=== PATIENT | male | born 1965 | race Caucasian/White ===

== ENCOUNTER 2016-12-05 07:22 | Inpatient (IN) | payer BC, OTHER ==
[~2016-12-05] VITALS: Ht 182.9 cm; Wt 63.5 kg
--- NOTE | 2016-12-05 12:30 | NUR ---
Intake Assessment; Patient is a 51 year old male, AOX4, presented to [facility] to detoxify from Heroin and Crystal Meth. Patient was picked up from [facility] and arrived at intake office at approximately 1200. He is the primary source of information. Patient's admitting vital signs are as follows; BP 99/55, HR 75, Temperature 98.4, Respirations of 18 and Spo2 of 95%, weight of 140lbs, denies pain at this time. Patient denies allergies and denies seizure history. Educated patient regarding unit protocols and policies, verbalized understanding. Will continue with further assessment when patient is up on the unit.
[2016-12-05] MEDS ORDERED: BUPRENORPHINE HCL 2 MG TAB.SUBL SL PRN (13:00)
[2016-12-05] MEDS ORDERED: MAGNESIUM HYDROXIDE 30 ML LIQUID UDC PO PRN (13:00)
[2016-12-05] MEDS ORDERED: DICYCLOMINE HCL 20 MG TABLET PO PRN (13:00)
[2016-12-05] MEDS ORDERED: ACETAMINOPHEN 325 MG TABLET PO PRN (13:00)
[2016-12-05] MEDS ORDERED: MIRALAX 17 GM POWD.PACK PO PRN (13:00)
[2016-12-05] MEDS ORDERED: IBUPROFEN 600 MG TABLET PO PRN (13:00)
[2016-12-05] MEDS ORDERED: CLONIDINE HCL 0.1 MG TABLET PO PRN (13:00)
--- NOTE | 2016-12-05 13:00 | NUR ---
Admission note; Patient is a 51 year old male, AOX4, presented to [facility] to detoxify from Heroin and Crystal Meth. Patient was picked up from [facility] and arrived at intake office at approximately 1200. He is the primary source of information. Patient's admitting vital signs are as follows; BP 99/55, HR 75, Temperature 98.4, Respirations of 18 and Spo2 of 95%, weight of 140lbs, denies pain at this time. Patient denies allergies and denies seizure history. Educated patient regarding unit protocols and policies, verbalized understanding. Patient is admitted under care of Dr. Barron to room 324. Urine provided by patient for urine drug screen. Patient appears agitated with flushed face. Patient is cooperative during nursing assessment. Discussed substance use history. Patient first started using Heroin when he was 17 years old, at this rate patient has been using Heroin IV for the last 3 weeks, approximately 2 grams/daily, last used 12/05/16 at 0945 and used 20$ worth of heroin. Patient also reported using Crystal Meth, he started using Meth IV 8 months ago, at this rate he has been using for 3 weeks approximately 1-1.5 grams/daily, last sued today 15$ worth of Meth. Discussed Medical and psych history. Patient reported history of depression, appendectomy, Hepatitis C and received treatment 5 years ago, UTI and tooth infection. All home medication reconciled and reported to MD. Patient's primary care physician is Dr. Mcdaniel. Patient's current COWS score is 4. Dr. Barron notified. Skin check done, old dry, intact scabs noted on patient's bilateral arms d/t skin picking. Patient oriented to unit by [employer]. Safety measures in place. Will continue to monitor patient.
[2016-12-05 13:24] LABS: *AMPHETAMINE, URINE POSITIVE (NEGATIVE); *BARBITURATE, URINE NEGATIVE (NEGATIVE); *CANNABINOID, URINE NEGATIVE (NEGATIVE); *COCCAINE, URINE POSITIVE (NEGATIVE); *OPIATE, URINE POSITIVE (NEGATIVE); *PHENCYCLIDINE SCREEN,URINE NEGATIVE (NEGATIVE)
[2016-12-05] MEDS ORDERED: NICO1PAT44 TP (13:32)
[2016-12-05] MEDS ORDERED: S-AD400T3 PO (13:32)
[2016-12-05] MEDS ORDERED: AMOX500C2 PO (13:32)
[2016-12-05] MEDS ORDERED: TAMS0.4C34 PO (13:32)
[2016-12-05] MEDS ORDERED: NICOTINE POLACRILEX 4 MG GUM-PK OF TEN BC PRN (15:00)
[2016-12-05] MEDS ORDERED: LORAZEPAM 1 MG TABLET PO ONE (15:00)
--- NOTE | 2016-12-05 15:00 | NUR ---
UDS result; Urine drug screen result came back positive for Opiates, amphetamine and Cocaine. Patient reported intermittent use of Cocaine with minimal unspecified amount but denies dependence to cocaine. Patient last used Cocaine yesterday.
[2016-12-05 15:08] LABS: BASOPHILS % (AUTO) 0.8 % (0.0-2.0); EOSINOPHILS # (AUTO) 0.3 K/uL (0.0-0.7); EOSINOPHILS % (AUTO) 5.2 % (0.0-7.0); HEMATOCRIT 43.3 % (40-50); HEMOGLOBIN 14.2 G/DL (14.0-18.0); LYMPHOCYTES # (AUTO) 1.5 K/UL (0.8-4.8); LYMPHOCYTES % (AUTO) 25.5 % (20.5-51.5); MEAN CORPUSCULAR HEMOGLOBIN 29.7 UUG (27.0-31.0); MEAN CORPUSCULAR HGB CONC 33 g/dL (32.0-37.0); MEAN CORPUSCULAR VOLUME 90.8 FL (82.0-92.0); MONOCYTES # (AUTO) 0.6 K/UL (0.1-1.30); MONOCYTES % (AUTO) 10.8 % (0.0-11.0); NEUTROPHILS # (AUTO) 3.4 K/UL (1.8-8.9); NEUTROPHILS % (AUTO) 57.7 % (38.5-71.5); PLATELET COUNT (AUTO) 374 K/UL (150-450); RED BLOOD CELL COUNT(AUTO) 4.77 MIL/UL (4.7-6.1); WHITE BLOOD COUNT (AUTO) 5.8 K/UL (4.0-11.2)
[2016-12-05 15:11] LABS: ETHANOL < 3 MG/DL (0-0)
[2016-12-05 15:17] LABS: ALANINE AMINOTRANSFERASE 18 U/L (16-63); ALKALINE PHOSPHATASE 68 U/L (50-136); ASPARTATE AMINOTRANSFERASE 22 U/L (15-37); BILIRUBIN,TOTAL 0.4 mg/dL (0.2-1.0); CARBON DIOXIDE 31 mmol/L (21-32); CHLORIDE 99 mmol/L (98-107); CREATININE 1.2 mg/dL (0.6-1.3); GLUCOSE 94 mg/dL (74-106); MAGNESIUM 2.2 mg/dL (1.8-2.4); POTASSIUM 3.8 mmol/L (3.5-5.1); TOTAL PROTEIN, SERUM 6.9 g/dL (6.4-8.2); UREA NITROGEN, BLOOD 8 mg/dL (7-18)
[2016-12-05 16:00] VITALS: BP 103/62
[2016-12-05] MEDS: DOCUSATE SODIUM 250 MG CAPSULE PO SCH (16:06)
--- NOTE | 2016-12-05 16:06 | NUR ---
New MD order and MD communication; MD ordered Ativan 2mg PO once and Colace 250mg PO once for constipation. Ativan 2mg PO one time order clarified with MD. Per MD, Ativan was ordered for anxiety and agitation. Order repeated back and was verified by MD. Orders carried out and given as ordered. Will closely monitor patient.
[2016-12-05] MEDS ORDERED: LORAZEPAM 1 MG TABLET ONE (16:14)
[2016-12-05] MEDS ORDERED: DOCUSATE SODIUM 250 MG CAPSULE PO ONE (16:14)
--- NOTE | 2016-12-05 17:06 | NUR ---
Re-assessment; Patient is calm and comfortable at this time. Ativan one time order is effective.
[2016-12-05] MEDS: FLUOXETINE HCL 20 MG CAPSULE PO SCH (17:21)
--- NOTE | 2016-12-05 18:06 | NUR ---
End of shift note; Patient is AOX4. Patient to start Subutex taper on 12/06/16. Patient's last COWS score is 4 at 1600. Patient remained compliant with treatment plan. Patient is on fall precaution. Met all needs.
--- NOTE | 2016-12-05 19:15 | NUR ---
Start of Shift Note: Patient is a 51 y/o admitted today 12/05/16 for Heroin and Meth dependence. Patient reported using Heroin IV 2 grams daily and Meth Iv 1-1.5 gram daily for 3 weeks. Patient also reported using cocaine on an intermittent non-daily basis. Patient is on a regular diet with no known food and drug allergies. Full Code status. Patient will be started on a 4-day Subutex taper tomorrow. Skin noted to be intact. Last COWS is 4. Pt was given a one time dose of Ativan 1mg as ordered. Patient is alert & oriented x4. No shortness of breath noted. Respiration even & unlabored. Abdomen soft & non-distended. Slight nausea noted. Patient complains of 8/10 generalized body aches, stuffy nose, & anxiety. Patient noted with slight bilateral hand tremors. Pateint denies SI/HI. Safety precautions are in place. Bed locked in lowest position. Both side rails up. Call light within pt's reach. Will continue to monitor patient.
[2016-12-05 20:00] VITALS: BP 117/76
[2016-12-05] MEDS: METHOCARBAMOL 750 MG TABLET PO PRN (20:41)
[2016-12-05] MEDS: HYDROXYZINE PAMOATE 25 MG CAPSULE PO PRN (20:41)
[2016-12-05] MEDS: ONDANSETRON ODT 4 MG TAB.RAPDIS SL PRN (20:41)
--- NOTE | 2016-12-05 20:41 | NUR ---
PRN Robaxin/Vistaril/Zofran Patient complains of 8/10 generalized body aches, anxiety & nausea. No episode of vomiting noted. Patient appears restless and anxious with facial grimacing noted. PRN Robaxin, Vistaril & Zofran administered as ordered. Will monitor for effectiveness of medication.
--- NOTE | 2016-12-05 21:41 | NUR ---
PRN Reassessment Patient verbalized improved nausea and decreased in anxiety. Patient reported 4/10 body aches at this time. Patient lying in bed and appears comfortable. No s/s of distress noted. Will continue to monitor patient.
[2016-12-06] VITALS: BP 102/64
[2016-12-06] MEDS: diphenhydrAMINE 50 MG CAPSULE PO PRN (01:01)
[2016-12-06] MEDS: MAG HYDROX/AL HYDROX/SIMETH 30 ML LIQUID UDC PO PRN (01:04)
--- NOTE | 2016-12-06 01:04 | NUR ---
PRN Benadryl & Motrin Patient complains of 8/10 generalized body aches and requesting for medication to help her sleep. PRn Benadryl and Motrin administered as ordered. Will reassess in 1 hour.
--- NOTE | 2016-12-06 02:04 | NUR ---
PRN Reassessment Patient still awake at this time. Patient reported slight relief from body aches. 5/10 generalized pain noted at this time. Will continue to monitor patient.
[2016-12-06 04:00] VITALS: BP 112/76
[2016-12-06] MEDS: HYDROXYZINE PAMOATE 25 MG CAPSULE PO PRN ×2 (04:41→12:26)
[2016-12-06] MEDS: METHOCARBAMOL 750 MG TABLET PO PRN ×2 (04:41→12:26)
--- NOTE | 2016-12-06 04:41 | NUR ---
PRN Robaxin & Vistaril Patient complains of 8/10 generalized body aches and anxiety. PRN Robaxin and Vistaril administered as ordered. Will continue to monitor.
[2016-12-06] MEDS: ONDANSETRON ODT 4 MG TAB.RAPDIS SL PRN (05:39)
--- NOTE | 2016-12-06 05:41 | NUR ---
PRN Reassessment Pt verbalized slight relief from body aches and decreased in anxiety. Will continue to monitor patient.
--- NOTE | 2016-12-06 07:15 | NUR ---
End of Shift Note: Patient is a 51 y/o admitted today 12/05/16 for Heroin and Meth dependence. Pt will be started on a 5-day Subutex taper today @ 0900. Patient is on a regular diet with no known food and drug allergies. Full Code status. Pt was given PRN Benadryl, Motrin, Robaxin x2, Vistaril x2, & Zofran 2x during my shift. Last COWS is 9. Pt had some trouble sleeping. Pt slept intermittently and only slept for a total of 4 hours. Pt was able to consume 1082 ml of fluids. Voided 2x with no bowel movement. All needs attended & met. Safety measures in place. Will endorse pt to day shift nurse.
--- NOTE | 2016-12-06 07:36 | NUR ---
START OF SHIFT NOTE Received patient roaming around unit. Patient reports feeling "crappy" and withdrawing from heroin and meth significantly. He is to start a 4 day Subutex taper today. 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 He was able to sleep 4 hours but he reports sleeping on and off. Last COWS 9 per night nurse. He reports hallucinations earlier this morning. Patient denies S/I or H/I. Will initiate taper to monitor s/s of w/d. Encouraged patient to notify RN if hallucinations worsen or if s/s of w/d become more severe. Will provide safe and supportive environment. Will monitor closely.
[2016-12-06 08:00] VITALS: BP 126/65
[2016-12-06] MEDS: FLUOXETINE HCL 20 MG CAPSULE PO SCH (08:17)
[2016-12-06] MEDS: TAMSULOSIN PO SCH (08:17)
[2016-12-06] MEDS: DOCUSATE SODIUM 250 MG CAPSULE PO SCH (08:17)
[2016-12-06] MEDS: MULTIVITAMINS,THERAPEUTIC TABLET PO SCH (08:17)
[2016-12-06] MEDS: NICOTINE 14 MG/24HR PATCH TD SCH (08:19)
[2016-12-06] MEDS ORDERED: TUBERCULIN,PURIF.PROT.DERIV. 5 TU/0.1 ML TEST ID ONE (09:00)
[2016-12-06] MEDS ORDERED: BUPRENORPHINE HCL 2 MG TAB.SUBL SL SCH (09:00)
[2016-12-06] MEDS ORDERED: PATIENT MAY USE OWN MED- MD OK TOP SCH (09:00)
[2016-12-06 12:00] VITALS: BP 121/62
[2016-12-06] MEDS: ONDANSETRON 4 MG/2 ML VIAL IM PRN ×2 (12:21→19:51)
--- NOTE | 2016-12-06 12:22 | NUR ---
PRN MEDICATION ZOFRAN IM GIVEN FOR 4 EMESIS EPISODES. WILL REASSESS Addendum: 12/06/16 at 1231 by NICK SAEED RN PRN BENTYL, ROBAXIN, AND VISTARIL GIVEN. PATIENT PRESENTS SHAKING AND STATES HE DOESN'T FEEL GOOD AND IS IN PAIN. PATIENT CURRENTLY VOMITING AND APPEARS ANXIOUS AND SICK. WILL MONITOR
--- NOTE | 2016-12-06 13:10 | NUR ---
PRN REASSESSMENT Patient sleeping in bed with rr even and unlabored. Patient frequently shifting in sleep. Side rails up & padded x2. Call justin within reach. Bed locked and in lowest position.Will monitor frequently.
[2016-12-06] MEDS: BUPRENORPHINE HCL 2 MG TAB.SUBL SL SCH ×3 (13:56→20:48)
[2016-12-06] MEDS: CLONIDINE HCL 0.1 MG TABLET PO SCH ×2 (14:00→20:48)
[2016-12-06] MEDS: GABAPENTIN 300 MG CAPSULE PO SCH ×2 (14:00→20:24)
[2016-12-06 14:08] LABS: HEPATITIS B SURFACE AG Negative (Negative)
[2016-12-06 16:00] VITALS: BP 104/74
--- NOTE | 2016-12-06 18:29 | NUR ---
END OF SHIFT NOTE Patient started on 4 day Subutex taper and tolerating well. PRN Zofran, Bentyl, Robaxin, and Vistaril given during shift and pt states they were effective. He was intermittently sleeping during shift. He appeared restless and anxious during shift. Vital signs remained stable. No group attendance. Patient reports feeling "out of it." Last COWS 12. TB test administered during shift to [facility]. Patient currently sleeping in bed with rails up x2, bed locked and in lowest position, call justin within reach. Will pass shift report to oncoming nurse.
--- NOTE | 2016-12-06 19:15 | NUR ---
Start of Shift Note: Patient is a 51 y/o admitted today 12/05/16 for Heroin and Meth dependence. Patient reported using Heroin IV 2 grams daily and Meth Iv 1-1.5 gram daily for 3 weeks. Patient also reported using cocaine on an intermittent non-daily basis. Patient is on a regular diet with no known food and drug allergies. Full Code status. Patient started on a 4-day Subutex taper and tolerating well. Skin noted to be intact. Last COWS is 12. Pt was given PRN Zofran, Bentyl, Robaxin & Vistaril during day shift. Patient is alert & oriented to name, place and situation. No shortness of breath noted. Respiration even & unlabored. Patient is ambulatory with a steady gait. Abdomen soft & non-distended. Patient complaining of stomach cramps and nausea with 1 episode of vomiting. Patient denies any headache or body aches. Pt appears really restless & frequent moving or shifting in bed. Bilateral hand tremors noted. Patient presented with sweating, chills, stuffy nose & anxiety. Pateint denies SI/HI. Safety precautions are in place. Bed locked in lowest position. Both side rails up. Call light within pt's reach. Will continue to monitor patient.
--- NOTE | 2016-12-06 19:51 | NUR ---
PRN Zofran IM Patient noted to be nauseous with 1 episode of vomiting noted. Pt vomited moderate amount of stomach content. PRN Zofran IM administered on left buttocks. Will reassess for effectiveness of medication.
[2016-12-06 19:58] VITALS: BP 108/72
--- NOTE | 2016-12-06 20:21 | NUR ---
PRN Reassessment Patient verbalized improved nausea. No episode of vomiting noted after medication administration. Will continue to monitor patient.
[2016-12-06] MEDS: DICYCLOMINE HCL 20 MG TABLET PO SCH (20:24)
[2016-12-06] MEDS: BACLOFEN 10 MG TABLET PO SCH (20:24)
--- NOTE | 2016-12-06 20:30 | NUR ---
RN Note Patient noted to be desaturating to 88-90% while on room air. No shortness of breath noted. Respiration even & unlabored. No wheezing noted upon auscultation. Dr. Barron made aware with orders noted and carried out. Pt placed on O2 @ 2Lpm via nasal cannula to maintain O2sat above 92%. CXR to be done in AM. Will continue to monitor patient.
[2016-12-06] MEDS ORDERED: LORAZEPAM 1 MG TABLET PO ONE (21:00)
[2016-12-07] VITALS: BP 114/79
[2016-12-07 04:00] VITALS: BP 103/67
--- NOTE | 2016-12-07 07:29 | NUR ---
End of Shift Note: Patient is a 51 y/o admitted today 12/05/16 for Heroin and Meth dependence. Pt continues on a 5-day Subutex taper and tolerating well. Patient is on a regular diet with no known food and drug allergies. Full Code status. Pt was given PRN Zofran IM for nausea/vomiting and was effective. Last COWS is 8. Pt is on O2 @ 2lpm to maintain O2Sat >92%. CXR scheduled today per MD order. Patient is stable and vitals WNL at this time. Pt still asleep at this time with no s/s of distress noted. Pt was able to sleep for a total of 9 hours. Consumed 850 ml of fluids. Voided 1x with 1x bowel movement. All needs attended met. Safety measures in place. Will endorse pt to day shift nurse.
--- NOTE | 2016-12-07 07:30 | NUR ---
START OF SHIFT Rcvd endorsement from ongoing nurse, Client is a 51 y/o male admitted for withdrawal from heroin, he is on 4 day Subutex taper (2nd day) with no ASE, last COWS 8 @ 2000. PRN Zofran IM for emesis, client slept 9 hrs. Client is in bed, a/o x4. he presents with depressed mood, flat affect, Client noted with enlarged pupil, body aches, sweats. Abdomen soft, nontender, quadrant x 4 active. Encourage client to increase fluid intake to facilitate detox. Encourage to attend group therapy for skills to maintain sobriety. Denied history of withdrawal induced seizures. Client is on universal precautions. NKA, full code, regular diet. Call light within reach. Side rails x 2 up. Will continue to monitor.
[2016-12-07] MEDS: GABAPENTIN 300 MG CAPSULE PO SCH ×3 (08:32→20:08)
[2016-12-07] MEDS: MULTIVITAMINS,THERAPEUTIC TABLET PO SCH (08:32)
[2016-12-07] MEDS: FLUOXETINE HCL 20 MG CAPSULE PO SCH (08:32)
[2016-12-07] MEDS: BACLOFEN 10 MG TABLET PO SCH ×3 (08:32→20:09)
[2016-12-07] MEDS: DICYCLOMINE HCL 20 MG TABLET PO SCH ×3 (08:33→20:09)
[2016-12-07] MEDS: DOCUSATE SODIUM 250 MG CAPSULE PO SCH (08:33)
[2016-12-07 08:50] VITALS: BP 94/61
[2016-12-07] MEDS: NICOTINE 14 MG/24HR PATCH TD SCH (09:00)
[2016-12-07] MEDS ORDERED: BUPRENORPHINE HCL 2 MG TAB.SUBL SL SCH ×2 (09:00→15:00)
--- NOTE | 2016-12-07 09:40 | NUR ---
MD Notification CX RAY for recent pna, current dyspnea and hypoxemia Impression: No radiographic evidence of acute cardiopulmonary disease.
[2016-12-07] MEDS: CLONIDINE HCL 0.1 MG TABLET PO SCH ×3 (09:46→20:09)
[2016-12-07] MEDS: TAMSULOSIN PO SCH (09:47)
[2016-12-07] MEDS: LOPERAMIDE HCL 2 MG CAPSULE PO PRN ×3 (10:07→21:41)
--- NOTE | 2016-12-07 10:07 | NUR ---
PRN IMODIUM 4MG Client reports several loose BM, Imodium 4mg PO administered. Encouraged client to increased fluid intake as tolerated. Call light within reach. Will continue to monitor.
--- NOTE | 2016-12-07 11:07 | NUR ---
Reassessment PRN IMODIUM 4MG Client reports no loose BM within the last hour, Imodium 4mg effective. Call light within reach. Will continue to monitor.
[2016-12-07 12:55] VITALS: BP 109/68
[2016-12-07 16:55] VITALS: BP 101/66
--- NOTE | 2016-12-07 17:14 | NUR ---
PRN Imodium 2mg Client reports several loose BM, Imodium 2mg PO administered. Encouraged client to increased fluid intake as tolerated. Call light within reach. Will continue to monitor.
[2016-12-07] MEDS: BUPRENORPHINE HCL 2 MG TAB.SUBL SL SCH ×2 (17:15→20:09)
--- NOTE | 2016-12-07 18:14 | NUR ---
Reassessment PRN Imodium 2mg Client reports no more episodes of loose stools within last hour, Imodium 2mg effective. Call light within reach. Will continue to monitor.
--- NOTE | 2016-12-07 18:33 | NUR ---
END OF SHIFT Will endorse client to incoming nurse, Client is in bed, a/o x 4, depressed mood, flat affect, enlarged pupil, chills, diarrhea, moist skin, irritability and fatigue are some of withdrawal symptoms experienced by the client and managed with Subutex taper (Day 2 of 4), tolerating well, last COWS 8 @ 1700. Client is fully ambulatory. PRN Imodium 4mg and 2mg for diarrhea, noted effective. Client was not with group therapy. Adequate PO fluid intake 1000mL, void x 10, stool x 5 Call light within reach. Safety measures rendered and all needs met.
--- NOTE | 2016-12-07 19:15 | NUR ---
Start of Shift Note: Patient is a 51 y/o admitted today 12/05/16 for Heroin and Meth dependence. Patient also reported using cocaine on an intermittent non-daily basis. Patient is on a regular diet with no known food and drug allergies. Full Code status. Patient continues on a 4-day Subutex taper and tolerating well. Skin noted to be intact. Last COWS is 8. Pt was given Immodium 2x for episodes of diarrhea. CXR done during day shift with unremarkable result. MD aware with NNO. Patient is alert & oriented to name, place and situation. No shortness of breath noted. Respiration even & unlabored. Patient is ambulatory with a steady gait. Abdomen soft & non-distended. Patient complaining of stomach cramps and nausea with 1 episode of vomiting. Patient denies any headache or body aches. Pt appears really restless and anxious. Bilateral hand tremors noted. Patient presented with sweating, chills, stuffy nose & anxiety. Pateint denies SI/HI. Safety precautions are in place. Bed locked in lowest position. Both side rails up. Call light within pt's reach. Will continue to monitor patient.
[2016-12-07] MEDS: ONDANSETRON 4 MG/2 ML VIAL IM PRN (19:48)
--- NOTE | 2016-12-07 19:48 | NUR ---
PRN Zofran IM Patient noted to be nauseous with 1 episode of vomiting noted. Pt vomited moderate amount of stomach content. PRN Zofran IM administered on right buttocks. Will reassess for effectiveness of medication.
[2016-12-07 20:00] VITALS: BP_SYST 100; BP_SYST 102; BP_DIAS 72
[2016-12-07] MEDS: MAG HYDROX/AL HYDROX/SIMETH 30 ML LIQUID UDC PO PRN (20:14)
--- NOTE | 2016-12-07 20:14 | NUR ---
PRN Maalox Patient complained of heartburn. PRN Maalox administered as ordered. WIll monitor for effectiveness of medication.
--- NOTE | 2016-12-07 20:48 | NUR ---
PRN Reassessment Patient verbalized improved nausea. No episode of vomiting noted after medication administration. Will continue to monitor patient.
[2016-12-07] MEDS: ONDANSETRON ODT 4 MG TAB.RAPDIS SL PRN (21:41)
[2016-12-07] MEDS: diphenhydrAMINE 50 MG CAPSULE PO PRN (21:41)
--- NOTE | 2016-12-07 21:41 | NUR ---
PRN Zofran SL/Immodium/Benadryl Pateitn complains of nausea. No episode of vomiting noted. Patient also reported episode of diarrhea and pt requested for medication for sleep. PRN Zofran, Immodium & Benadryl administered as ordered. Will monitor for effectiveness of medication.
--- NOTE | 2016-12-07 22:41 | NUR ---
PRN Reassessment Patient awake at this time and verbalized improved nausea. No episode of vomiting or diarrhea noted at this time. Will continue to monitor patient.
[2016-12-08] VITALS: BP 98/62
[2016-12-08 04:00] VITALS: BP 115/71
--- NOTE | 2016-12-08 06:52 | NUR ---
End of Shift Note: Patient is a 51 y/o admitted today 12/05/16 for Heroin and Meth dependence. Pt continues on a 5-day Subutex taper and tolerating well. Patient is on a regular diet with no known food and drug allergies. Full Code status. Pt was given PRN Zofran IM, Zofran SL, Immodium, Maalox & Benadryl during my shift. Last COWS is 7. Pt is on O2 @ 2lpm to maintain O2Sat >95%. Patient is stable and vitals WNL at this time. Pt still asleep at this time with no s/s of distress noted. Pt was able to sleep for a total of 6 hours. Consumed 1100 ml of fluids. Voided 2x with 2x loose bowel movement. Patient had 1 episode of vomiting during my shift. All needs attended met. Safety measures in place. Will endorse pt to day shift nurse.
--- NOTE | 2016-12-08 08:00 | NUR ---
START OF SHIFT Rcvd endorsement from ongoing nurse, 51 y/o admitted for withdrawal from heroin, he is on 4 day Subutex taper (3rd day) with no ASE, last COWS 7 @ 1999. PRN Benadryl for inability to sleep, Zofran IM, SL for emesis, Imodium for diarrhea, Maalox for heartburn, noted effective, client slept 6 hrs. Client is in bed, a/o x4. he presents with anxious mood, flat affect, he stated "I still have the runs." Client noted with enlarged pupil, diaphoretic, chills/colds, he reports stomach cramps, lost of appetite and fatigue. Abdomen soft, nontender, quadrant x 4 active. Encourage client to increase fluid intake to facilitate detox and prevent dehydration. Encourage to attend group therapy for skills to maintain sobriety. Denied history of withdrawal induced seizures. Client is on universal precautions. NKA, full code, regular diet. Call light within reach. Side rails x 2 up. Will continue to monitor.
[2016-12-08 08:17] VITALS: BP 121/71
[2016-12-08] MEDS: CLONIDINE HCL 0.1 MG TABLET PO SCH ×3 (08:34→20:23)
[2016-12-08] MEDS: LOPERAMIDE HCL 2 MG CAPSULE PO PRN (08:34)
[2016-12-08] MEDS: BACLOFEN 10 MG TABLET PO SCH ×3 (08:34→20:23)
--- NOTE | 2016-12-08 08:34 | NUR ---
PRN Imodium 2mg Client reports diarrhea, Imodium 2mg PO administered. Encouraged client to increased fluid intake as tolerated. Call light within reach. Will continue to monitor.
[2016-12-08] MEDS: BUPRENORPHINE HCL 2 MG TAB.SUBL SL SCH ×4 (08:35→20:23)
[2016-12-08] MEDS: DICYCLOMINE HCL 20 MG TABLET PO SCH ×3 (08:35→20:22)
[2016-12-08] MEDS: DOCUSATE SODIUM 250 MG CAPSULE PO SCH (08:36)
[2016-12-08] MEDS: GABAPENTIN 300 MG CAPSULE PO SCH ×3 (08:40→20:25)
[2016-12-08] MEDS: MULTIVITAMINS,THERAPEUTIC TABLET PO SCH (08:40)
[2016-12-08] MEDS: NICOTINE 14 MG/24HR PATCH TD SCH (08:40)
[2016-12-08] MEDS: FLUOXETINE HCL 20 MG CAPSULE PO SCH (08:40)
[2016-12-08] MEDS: TAMSULOSIN PO SCH (08:40)
[2016-12-08] MEDS ORDERED: BUPRENORPHINE HCL 2 MG TAB.SUBL SL SCH (09:00)
--- NOTE | 2016-12-08 09:00 | NUR ---
Zero induration noted on L forearm TB site
--- NOTE | 2016-12-08 09:34 | NUR ---
Reassessment PRN Imodium 2mg Client reports loose stool x 1 within last hour. Call light within reach. Will continue to monitor.
[2016-12-08 12:13] VITALS: BP 105/66
[2016-12-08 16:55] VITALS: BP 99/61
--- NOTE | 2016-12-08 18:43 | NUR ---
END OF SHIFT Will endorse client to incoming nurse, client is in group therapy, he continue to present with depressed mood, flat affect, chills, abdominal cramps, restless legs, decreased appetite, and fatigue. He is on 3rd of 5 day taper, tolerating well, last COWS 4 @ 1600. Client is tolerating well PO antibiotic for infection on L hand and topical antibiotic for superficial abrasions on face. Client is fully ambulatory. Client was compliant with 2/3 of group therapy. Adequate PO intake 2834mL, void x 4. Call light within reach. Safety measures rendered and all needs met.
[2016-12-08 20:00] VITALS: BP 107/57
--- NOTE | 2016-12-08 20:00 | NUR ---
1999 Patient received awake, and lying quietly in bed watching television. Patient responds to nurse's greeting and introduction with, " Hi, how are you ?" Patient is oriented to person, place, day, date, time and his personal situation. Patient's color is very palumbo-pink and his skin is clean, warm, dry and intact. Patient's lung sounds are clear bilaterally and active bowel sounds are noted X 4 abdominal Quads, per auscultation. Patient denies any pain or other discomfort and he offers no requests for anything. Patient states that he is eating his regular diet trays 'okay' and is taking lots of various fluids ad mirela with no gastric issues at this time, though he states that he has had some bouts of loose stools since his admission. Patient states that he has attended [employer] groups, but he did not do so today. Patient states further that, " I like being alone" It feels good" Vital signs are: 98.2-88-18 107/57 O2 Sat 95%, COWS 3. O2 per nasal cannula at bedside per prn use per MD order. Patient's respirations at this time are regular, dry and unlabored at 18. Patient was admitted on 12/05/16 for Heroin, Meth and Cocaine withdrawal and he is currently on a 4-Day Subutex medication taper, which he has apparently been tolerating well so far. Patient is friendly, cooperative, verbally appropriate and easily engages nurse in conversation, about himself, his life, his various treatment admissions, his family and other subjects personal to him. Patient allowed to ventilate his feelings, then positive encouragement and praise given to patient for his choice for treatment to deal with his addiction at this time. Bed is locked and in lowest position, bed rails are up X 2 and call light within patient's easy reach.
[2016-12-09] VITALS: BP 109/69
[2016-12-09] MEDS: ONDANSETRON 4 MG/2 ML VIAL IM PRN (02:14)
--- NOTE | 2016-12-09 02:14 | NUR ---
PRN MEDICATION: Prn Zofran 4 mg IM given in RUOQ, for c/o large amount explosive, clear emesis with brown particles. Emesis noted in and around toilet bowl and seat. Patient states that " this happened to me last night too, I don't know why?" It should be noted that patient has recently returned back to his room from a very long smoke break on [facility], where he smoked multiple cigarettes.
[2016-12-09] MEDS: diphenhydrAMINE 50 MG CAPSULE PO PRN ×2 (02:29→21:10)
[2016-12-09] MEDS: HYDROXYZINE PAMOATE 25 MG CAPSULE PO PRN ×2 (02:29→08:35)
--- NOTE | 2016-12-09 02:29 | NUR ---
PRN MEDICATIONS: Prn Benadryl 50 mg p.o. given per request for sleep medication and Prn Vistaril 25 mg p.o. given per c/o anxiety.
--- NOTE | 2016-12-09 02:44 | NUR ---
REASSESSMENT PRN ZOFRAN 4 mg IM: Patient states that both his nausea and vomiting has ceased.
--- NOTE | 2016-12-09 03:39 | NUR ---
REASSESSMENT PRN MEDICATION: Patient is sleeping comfortably with eyes closed and respirations quiet, even, unlabored at 12.
--- NOTE | 2016-12-09 04:00 | NUR ---
Patient refused to be awakened for V/S to be done at this time.
--- NOTE | 2016-12-09 06:30 | NUR ---
0630 Patient slept a total of 3 hours and he had total intake 1,000 ml p.o. Voids 3 and stools 2.
--- NOTE | 2016-12-09 08:00 | NUR ---
START OF SHIFT Rcvd endorsement from ongoing nurse, 51 y/o admitted for withdrawal from heroin, he is on last of 4 day Subutex taper with no ASE, last COWS 4 @ 0400. PRN Bunnyadkeilyl for inability to sleep, Preethi VALDEZ, emesis X 1, noted effective, client slept 6 hrs. Client is in bed, a/o x4. he stated "I just had a loose bm, I am really anxious and I feel like I just want to leave this place." primary nurse let the client express his feelings and offered comfort. Abdomen soft, nontender, quadrant x 4 active. Encourage client to increase fluid intake to facilitate detox. Encourage to attend group therapy for skills to maintain sobriety. Denied history of withdrawal induced seizures. Client is on universal precautions. NKA, full code, regular diet. Call light within reach. Side rails x 2 up. Will continue to monitor.
[2016-12-09] MEDS: DICYCLOMINE HCL 20 MG TABLET PO SCH ×3 (08:24→21:10)
[2016-12-09] MEDS: BACLOFEN 10 MG TABLET PO SCH ×3 (08:24→21:10)
[2016-12-09] MEDS: MULTIVITAMINS,THERAPEUTIC TABLET PO SCH (08:24)
[2016-12-09] MEDS: GABAPENTIN 300 MG CAPSULE PO SCH ×3 (08:24→21:10)
[2016-12-09] MEDS: BUPRENORPHINE HCL 2 MG TAB.SUBL SL SCH ×3 (08:25→21:09)
[2016-12-09] MEDS: CLONIDINE HCL 0.1 MG TABLET PO SCH ×3 (08:25→21:10)
[2016-12-09] MEDS: FLUOXETINE HCL 20 MG CAPSULE PO SCH (08:25)
[2016-12-09] MEDS: DOCUSATE SODIUM 250 MG CAPSULE PO SCH (08:26)
[2016-12-09] MEDS: NICOTINE 14 MG/24HR PATCH TD SCH (08:26)
[2016-12-09 08:28] VITALS: BP 102/71
[2016-12-09] MEDS: TAMSULOSIN PO SCH (08:35)
[2016-12-09] MEDS: LOPERAMIDE HCL 2 MG CAPSULE PO PRN ×2 (08:35→21:10)
--- NOTE | 2016-12-09 08:35 | NUR ---
PRN Vistaril, Imodium Client reports anxiety, mb pacing, loud voice, Vistaril 25mg PO administered. He reports one episode of loose stool Imodium 2mg PO administered. Call light within reach. Will continue to monitor.
[2016-12-09] MEDS ORDERED: BUPRENORPHINE HCL 2 MG TAB.SUBL SL SCH (09:00)
--- NOTE | 2016-12-09 09:35 | NUR ---
Reassessment PRN Vistaril, Imodium Client appears less anxious, he is in bed watching TV. He stated "I feel better, thank you and no more trips to the bathroom." Vistaril 25mg and Imodium 2mg effective. Call light within reach. Will continue to monitor.
[2016-12-09 12:55] VITALS: BP 101/65
[2016-12-09 16:55] VITALS: BP 102/63
[2016-12-09] MEDS: ONDANSETRON ODT 4 MG TAB.RAPDIS SL PRN (17:00)
--- NOTE | 2016-12-09 17:00 | NUR ---
PRN Zofran 4mg SL Client reports emesis x 1 and nausea, Zofran 4mg SL administered. Saltine crackers and ben dhiraj at bedside. call light within reach. will continue to monitor.
--- NOTE | 2016-12-09 18:00 | NUR ---
Reassessment PRN Zofran 4mg Client reports relief from emesis and nausea.
--- NOTE | 2016-12-09 18:47 | NUR ---
END OF SHIFT Will endorse client to incoming nurse, client is in room, PRN Vistaril for anxiety, Imodium for loose stool x 1, Zofran 4mg SL for emesis x 1, noted effective. Client continues to present with depressed mood, flat affect, abdominal cramps, restless legs, decreased appetite, and fatigue. He is on 4rd of 5 day taper, tolerating well, last COWS 6 @ 1700. Client is fully ambulatory. Client was not compliant with group therapy. Adequate PO intake 2342mL, void x 4, stool x 3. Call light within reach. Safety measures rendered and all needs met.
[2016-12-09 20:00] VITALS: BP 100/64
--- NOTE | 2016-12-09 20:00 | NUR ---
Start of Shift Note: Report received from day shift nurse. Pt is a 51 yo male admitted on 12/05/16 for medically-supervised withdrawal from opiates and stimulants. Pt reports using 2gm heroin and 1-1.5gm methamphetamine daily for three weeks; pt also reports intermittent use of cocaine. Pt is on a 4-day Subutex taper. Pt received with last COWS=6, and PRN's Vistaril, Imodium, and Zofran were given during day shift. Pt reports NKA, is a full code, and is on a regular diet. Pt reports PMHx: appendectomy, depression, Hep-C. Pt received in room, and reports severe diarrhea, nausea, dyspepsia, generalized pain, diaphoresis, and anxiety. Bed is in low position and locked, side rails up x2, call light within reach. Will continue to monitor.
--- NOTE | 2016-12-09 20:03 | NUR ---
Communication: Patient requests Tums chewable for dyspepsia. Dr Chisholm contacted and order received for Tums tab Q6H PRN. Order entered on behalf of Dr Chisholm as he is without computer access at this time. Addendum: 12/09/16 at 2007 by KOURTNEY MELCHOR RN Correction: MD Boyle
[2016-12-09] MEDS ORDERED: CALCIUM CARBONATE 500 MG TAB.CHEW ONE (20:48)
[2016-12-09] MEDS: CALCIUM CARBONATE 500 MG TAB.CHEW PO PRN (21:10)
--- NOTE | 2016-12-09 21:11 | NUR ---
PRN Imodium and PRN Tums: Patient complains of diarrhea; patient reports one episode this shift. Administered PRN Imodium as ordered. Patient complains of dyspepsia. Administered PRN Tums as ordered. Will continue to monitor. Addendum: 12/10/16 at 0332 by KOURTNEY MELCHOR RN Also administered PRN Benadryl for insomnia.
--- NOTE | 2016-12-09 22:15 | NUR ---
PRN Reassessment: Patient denies any more episodes of diarrhea. Patient denies dyspepsia. PRN Imodium and PRN Tums effective.
[2016-12-10] VITALS: BP 114/79
[2016-12-10] MEDS: ONDANSETRON 4 MG/2 ML VIAL IM PRN (00:40)
--- NOTE | 2016-12-10 03:27 | NUR ---
FARHANAN Zofran IM: Patient reports emesis x1 and states that he is still feeling very nauseous. Administered PRN Zofran IM as ordered. Will continue to monitor. Addendum: 12/10/16 at 0331 by KOURTNEY MELCHOR RN Wrong time entered. Administered at 00:40
[2016-12-10 04:00] VITALS: BP 111/67
--- NOTE | 2016-12-10 04:00 | NUR ---
COWS Deferred: COWS assessment is deferred for sleep. V/S stable. All safety precautions are in place. Will continue to monitor. Addendum: 12/10/16 at 0458 by KOURTNEY MELCHOR RN Amended: Links added.
--- NOTE | 2016-12-10 06:50 | NUR ---
End of Shift Note: Pt is a 51 yo male admitted to [facility] on 12/05/16 for medically-supervised withdrawal from opiates and stimulants. Pt reports a PMHx of appendectomy, depression, Hep-C. Pt reports NKA. Pt is a full code. Pt is on a regular diet. Pt reported using 2gm heroin and 1-1.5gm methamphetamine daily for three weeks; pt also reports intermittent use of cocaine. Pt is on a 4-day Subutex taper. Scheduled medication regime effectively managed s/s of withdrawal this shift, in addition to PRN Imodium for diarrhea, PRN Tums for dyspepsia, and PRN Zofran for emesis/nausea. Last COWS=7at 00:00. V/S stable throughout shift. Total fluid intake this shift: 1700 ml; output: urine x 4 and BM 1. PRN Benadryl was given for inability to sleep, which was effective and pt slept 7 hours this shift. Pt is currently in bed, all needs have been attended and met. Pt endorsed to day shift nurse.
[2016-12-10 08:39] VITALS: BP 110/68
[2016-12-10] MEDS: NICOTINE 14 MG/24HR PATCH TD SCH (09:00)
[2016-12-10] MEDS: DOCUSATE SODIUM 250 MG CAPSULE PO SCH (09:00)
[2016-12-10] MEDS: FLUOXETINE HCL 20 MG CAPSULE PO SCH (09:28)
[2016-12-10] MEDS: DICYCLOMINE HCL 20 MG TABLET PO SCH ×3 (09:28→20:51)
[2016-12-10] MEDS: MULTIVITAMINS,THERAPEUTIC TABLET PO SCH (09:28)
[2016-12-10] MEDS: CALCIUM CARBONATE 500 MG TAB.CHEW PO PRN ×2 (09:28→20:53)
[2016-12-10] MEDS: GABAPENTIN 300 MG CAPSULE PO SCH ×3 (09:28→20:52)
--- NOTE | 2016-12-10 09:28 | NUR ---
PRN Tums 500mg chew tab Client report upset stomach, he denies any D/N/V at this time. He stated "Maybe pain 3 or 4 out of 10." Call light within reach. Will continue to monitor.
[2016-12-10] MEDS: BUPRENORPHINE HCL 2 MG TAB.SUBL SL SCH ×2 (09:29→20:53)
[2016-12-10] MEDS: BACLOFEN 10 MG TABLET PO SCH ×3 (09:29→20:52)
[2016-12-10] MEDS: CLONIDINE HCL 0.1 MG TABLET PO SCH ×3 (09:29→20:55)
--- NOTE | 2016-12-10 09:30 | NUR ---
Client refused Nicotine 14mg patch and docusate, risk/benefits discuss, but he still refused the medications.
[2016-12-10] MEDS: TAMSULOSIN PO SCH (09:36)
--- NOTE | 2016-12-10 10:28 | NUR ---
Reassessment PRN Tums 500mg chew tab Client report relief from upset stomach, he stated "It feel better now, no problem." Client denies any N/V/D. Call light within reach.
[2016-12-10 12:55] VITALS: BP 113/76
[2016-12-10 16:55] VITALS: BP 110/75
--- NOTE | 2016-12-10 18:32 | NUR ---
END OF SHIFT Client continues on 4 of 5 day Subutex taper, tolerating well with no ASE. PRN Tums for upset stomach, effective. Last COWS 5 @ 1600. Client continues to present with depressed mood, flat affect, he reports stomach cramps, fatigue and restless legs. Client was not compliant with group therapy. . Adequate PO intake 2000L, void x 4. stool x 1. Call light within reach. Safety measures rendered and all needs met.
--- NOTE | 2016-12-10 19:15 | NUR ---
START OF SHIFT Received 51 year old male patient admitted on 12/05/16 for Heroin, Meth and Cocaine dependency. Pt is full code with NKA. He reports a PMHx of depression, appendectomy and Hep C. He reports using Heroin 2 grams daily for 3 weeks. Last dose was $20 worth on 12/05/16. Meth 1-1.5 gram daily for 3 weeks. Last dose was $15 worth on 12/05/16. And Cocaine intermittently. Last used 12/04/16. He is placed on a 5 day Subutex taper and tolerating well. Per endorsement, pt received PRN Tums and has order for 2L to keep O2 sat above 95%. Pt is alert and oriented x4, breathing is even and unlabored, safety measures in place. Will continue to monitor.
[2016-12-10 20:00] VITALS: BP 105/68
[2016-12-10] MEDS: QUETIAPINE FUMARATE 25 MG TABLET PO SCH (20:51)
--- NOTE | 2016-12-10 20:53 | NUR ---
PRN TUMS Pt complains of heartburn. PRN Tums administered as ordered. Breathing even and unlabored, safety measures in place. Will monitor effectiveness.
--- NOTE | 2016-12-10 21:53 | NUR ---
PRN TUMS REASSESSMENT PRN medication effective. Pt reports decrease in heartburn. Breathing even and unlabored, safety measures in place. Will monitor.
--- NOTE | 2016-12-11 | NUR ---
VITALS REFUSED, COWS DEFERRED 0000 vitals refused by pt. Risks/benefits explained x3, pt still refused. COWS deferred d/t pt lying in bed with eyes closed noted to be asleep. Breathing even and unlabored, respirations 16. Safety measures in place. Will monitor.
[2016-12-11] MEDS: ONDANSETRON 4 MG/2 ML VIAL IM PRN (02:13)
--- NOTE | 2016-12-11 02:15 | NUR ---
PRN ZOFRAN IM Pt complains of nausea and vomiting x2. PRN Zofran IM administered as ordered. Breathing even and unlabored, safety measures in place. Will monitor effectiveness.
--- NOTE | 2016-12-11 03:15 | NUR ---
PRN ZOFRAN IM REASSESSMENT PRN medication effective. Pt lying in bed with eyes closed noted to be asleep. No facial grimacing noted. Respirations 16, breathing even and unlabored. Safety measures in place. Will monitor.
--- NOTE | 2016-12-11 04:00 | NUR ---
VITALS/COWS 0400 BP refused. O2 sat 96%, RR: 16, HR: 98. COWS deferred d/t pt lying in bed with eyes closed noted to be asleep. Safety measures in place. Will monitor.
--- NOTE | 2016-12-11 07:14 | NUR ---
Start of shift note Pt was admitted for opiate dependence. Pt has a PMHx of depression and hep C. Pt reports NKA, pt is a full code and on a regular diet. Pt is on a subutex taper. Per report, pt had episodes of vomiting and diarrhea, but only requested IM zofran. At this time pt states "I feel a little nauseated, but I am ok right now". Will continue to monitor pt. All needs addressed at this time.
--- NOTE | 2016-12-11 07:21 | NUR ---
END OF SHIFT Pt is a 51 year old male patient admitted on 12/05/16 for Heroin, Meth and Cocaine dependency. Pt is full code with NKA. He reports a PMHx of depression, appendectomy and Hep C. He continues on a 5 day Subutex taper and tolerating well. At 2052 he received PRN Tums, at 214 he received PRN Zofran IM. He slept a total of 6 hrs, Intake: 1250 mL, Void: x2, BM: 4. COWS:5. Pt remains alert and oriented x4, breathing is even and unlabored, safety measures in place. Endorsed to oncoming shift.
[2016-12-11 08:00] VITALS: BP 104/60
[2016-12-11] MEDS: NICOTINE 14 MG/24HR PATCH TD SCH (09:00)
[2016-12-11] MEDS: CLONIDINE HCL 0.1 MG TABLET PO SCH ×2 (09:00→21:07)
[2016-12-11] MEDS ORDERED: BUPRENORPHINE HCL 2 MG TAB.SUBL SL SCH (09:00)
[2016-12-11] MEDS: DICYCLOMINE HCL 20 MG TABLET PO SCH ×3 (09:13→21:07)
[2016-12-11] MEDS: TAMSULOSIN PO SCH (09:13)
[2016-12-11] MEDS: FLUOXETINE HCL 20 MG CAPSULE PO SCH (09:13)
[2016-12-11] MEDS: BACLOFEN 10 MG TABLET PO SCH ×3 (09:13→21:07)
[2016-12-11] MEDS: GABAPENTIN 300 MG CAPSULE PO SCH ×3 (09:13→21:07)
[2016-12-11] MEDS: MULTIVITAMINS,THERAPEUTIC TABLET PO SCH (09:13)
--- NOTE | 2016-12-11 09:15 | NUR ---
Medication held Pt has a BP of 104/60, per order, pt does not meet criteria to administer medication. Medication held. Pt also states that he prefers to smoke at this time. Nicotine patch held. Will continue to monitor pt.
--- NOTE | 2016-12-11 09:20 | NUR ---
PRN administration pt c/o multiple episodes of diarrhea. administered PRN imodium per MD order. Pt placed on isolation precautions, pt educated on hand washing, stool sample collected.
[2016-12-11] MEDS: LOPERAMIDE HCL 2 MG CAPSULE PO PRN (09:29)
--- NOTE | 2016-12-11 10:20 | NUR ---
Reassessment Pt states that he has not had an episode of diarrhea. Will continue to monitor pt.
[2016-12-11 12:00] VITALS: BP 121/74
[2016-12-11] MEDS ORDERED: IBUP-1955 PO (13:29)
[2016-12-11] MEDS ORDERED: BACL10TA PO (13:29)
[2016-12-11] MEDS ORDERED: DIPH50CA37 PO (13:29)
[2016-12-11] MEDS ORDERED: HYDR-3895 PO (13:29)
[2016-12-11] MEDS ORDERED: QUET25TA PO (13:29)
[2016-12-11] MEDS ORDERED: GABA-534 PO (13:29)
[2016-12-11] MEDS ORDERED: DICY20TA28 PO (13:29)
[2016-12-11] MEDS ORDERED: FLUO-120 PO (13:29)
[2016-12-11] MEDS ORDERED: CLON0.1T14 PO (13:29)
[2016-12-11] MEDS ORDERED: DIPHENOXYLATE HCL/ATROP SULF TABLET PO ONE (13:30)
[2016-12-11 15:33] LABS: *AMPHETAMINE, URINE POSITIVE (NEGATIVE); *BARBITURATE, URINE NEGATIVE (NEGATIVE); *CANNABINOID, URINE NEGATIVE (NEGATIVE); *COCCAINE, URINE NEGATIVE (NEGATIVE); *OPIATE, URINE NEGATIVE (NEGATIVE); *PHENCYCLIDINE SCREEN,URINE NEGATIVE (NEGATIVE)
[2016-12-11 16:00] VITALS: BP 106/70
[2016-12-11] MEDS ORDERED: DIPHENOXYLATE HCL/ATROP SULF TABLET PO PRN (18:45)
--- NOTE | 2016-12-11 19:14 | NUR ---
End of shift note Pt has been admitted for opiate dependence. Pt has successfully completed a 5 day subutex taper without any ASE. Pt has been placed on isolation precautions to rule out c-diff d/t pt reporting having watery diarrhea for 5 days. Stool sample has been sent to lab. During the shift the pt had a PRN dose of Imodium and a one time dose of lomotil with effectiveness. Pt states that he hasn't had any further diarrhea at this time. Pt denies any nausea or other feelings of discomfort. Pt had a recent COWS of 3 at 1600. Pt drank 2500 ml of fluids during the shift, ate 100% of his breakfast, ate 100% of lunch, and 100 of dinner. Pt had 10 voids and 3 BMs during the shift. All needs addressed at this time. Will endorse SBAR to oncoming shift.
--- NOTE | 2016-12-11 19:15 | NUR ---
START OF SHIFT Received 51 year old male patient admitted on 12/05/16 for Heroin, Meth and Cocaine dependency. Pt is full code with NKA. He reports a PMHx of depression, appendectomy and Hep C. He reports using Heroin 2 grams daily for 3 weeks. Last dose was $20 worth on 12/05/16. Meth 1-1.5 gram daily for 3 weeks. Last dose was $15 worth on 12/05/16. And Cocaine intermittently. Last used 12/04/16. He is placed on a 5 day Subutex taper, pt completed his taper today and tolerating well. Per endorsement, pt is on contact ISO to rule out C-DIFF. Per endorsement pt received PRN Imodium. Pt's clonidine is also changed to every 12 hours. Pt is alert and oriented x4, breathing is even and unlabored, safety measures in place. Will continue to monitor.
[2016-12-11 20:00] VITALS: BP 109/74
[2016-12-11] MEDS: QUETIAPINE FUMARATE 25 MG TABLET PO SCH (21:07)
--- NOTE | 2016-12-12 | NUR ---
VITALS REFUSED/COWS DEFERRED 0000 vitals refused by pt. COWS deferred d/t pt lying in bed with eyes closed noted to be asleep. Breathing even and unlabored, respirations 16. Safety measures in place. Will continue to monitor.
[2016-12-12] MEDS: ONDANSETRON 4 MG/2 ML VIAL IM PRN (01:46)
--- NOTE | 2016-12-12 01:46 | NUR ---
PRN ZOFRAN/LOMOX Pt complains of nausea with episode of vomiting x1 and diarrhea x1. PRN Zofran IM and Lomox administered as ordered. Breathing even and unlabored, safety measures in place. Will monitor.
--- NOTE | 2016-12-12 02:46 | NUR ---
PRN ZOFRAN/LOMOX REASSESSMENT PRN medications effective. Pt lying comfortably in bed with eyes closed noted to be asleep. No facial grimacing noted. Respirations 16, breathing is even and unlabored. Safety measures in place. Will monitor.
--- NOTE | 2016-12-12 04:00 | NUR ---
VITALS/COWS 0400 vitals refused. COWS deferred d/t pt lying in bed with eyes closed noted to be asleep. Respirations 16, breathing is even and unlabored. Safety measures in place. Will monitor.
--- NOTE | 2016-12-12 07:23 | NUR ---
END OF SHIFT Pt is a 51 year old male patient admitted on 12/05/16 for Heroin, Meth and Cocaine dependency. Pt is full code with NKA. He reports a PMHx of depression, appendectomy and Hep C. Pt continues on contact ISO to rule out CDIFF. At 0146 he received PRN Zofran and Lomox d/t complains of vomiting and diarrhea. He slept a total of 7 hrs, Intake: 1850mL, Void: x2, BM:1. COWS:3. Pt is scheduled to be DC today to home. Pt remains alert and oriented x4, breathing is even and unlabored, safety measures in place. Endorsed to oncoming shift.
--- NOTE | 2016-12-12 07:52 | NUR ---
START OF SHIFT Received report from night nurse. 51 year old male patient admitted on 12/05/16 for heroin and methamphetamine dependence. Pt has completed 5 day Subutex taper and is medically cleared for discharge. Pt continues to have diarrhea, c diff isolations are in place, results of stool sample are still pending. Pt had 1 episode of diarrhea at night and one episode of nausea and emesis. PRN Zofran and Lomotil were administered and effective. Most recent COWS were 3. Pt slept for 7 hours. All needs met at this time, will continue to monitor.
[2016-12-12 08:12] VITALS: BP 110/63
[2016-12-12] MEDS: NICOTINE 14 MG/24HR PATCH TD SCH (09:00)
[2016-12-12] MEDS: TAMSULOSIN PO SCH (09:04)
[2016-12-12] MEDS: DICYCLOMINE HCL 20 MG TABLET PO SCH (09:04)
[2016-12-12] MEDS: FLUOXETINE HCL 20 MG CAPSULE PO SCH (09:04)
[2016-12-12] MEDS: BACLOFEN 10 MG TABLET PO SCH (09:04)
[2016-12-12 09:05] VITALS: BP 110/67
[2016-12-12] MEDS: CLONIDINE HCL 0.1 MG TABLET PO SCH (09:05)
[2016-12-12] MEDS: MULTIVITAMINS,THERAPEUTIC TABLET PO SCH (09:05)
[2016-12-12] MEDS: GABAPENTIN 300 MG CAPSULE PO SCH (09:05)
--- NOTE | 2016-12-12 09:18 | NUR ---
D/C NOTE Pt is A/O x4. V/S remain WNL. Pt denies SI/HI or hallucinations. Pt shows no s/s of acute withdrawal at this time, and is stable. has medically cleared pt for d/c . Education on Hepatitis C, smoking cessation and medication side effects provided. Pt verbalizes understanding. All pt belongings are in belonging bag, including prescriptions, including home medications. Refuses PNU vaccination. Pt is being accompanied by [employer] at this time to be transported to [facility], pt d/c location is home. All needs met.
== END 2016-12-12 09:18 | disposition home or self-care (01) | DRG 895 ==
LOC: SRC 12:30
PROVIDERS: ADMIT Internal Medicine; ATTEND Internal Medicine
PROC: HZ2ZZZZ Detoxification Services for Substance Abuse Treatment (ICD-10-PCS; principal; 2016-12-05)
PROC: HZ31ZZZ Individual Counseling for Substance Abuse Treatment, Behavioral (ICD-10-PCS; 2016-12-07)
DX: F11.23 Opioid dependence with withdrawal (principal); F33.1 Major depressive disorder, recurrent, moderate; Z91.89 Other specified personal risk factors, not elsewhere classified; Z81.1 Family history of alcohol abuse and dependence; Z81.8 Family history of other mental and behavioral disorders; F17.210 Nicotine dependence, cigarettes, uncomplicated; K59.03 Drug induced constipation; N40.0 Benign prostatic hyperplasia without lower urinary tract symptoms; Z56.0 Unemployment, unspecified; R09.02 Hypoxemia; F15.221 Other stimulant dependence with intoxication delirium; Z79.899 Other long term (current) drug therapy; B19.20 Unspecified viral hepatitis C without hepatic coma
CPT/HCPCS: 36415; 71010; 80307; 80324; 80353; 80361; 83735; 85025; 86580; 86592; 86705; 86803; 87340; 87806; A4663; G0480; J2405; Q0162; Q0163

== ENCOUNTER 2017-01-25 07:17 | Inpatient (IN) | payer BC, OTHER ==
[~2017-01-25] VITALS: Ht 180.3 cm; Wt 59.0 kg
[~2017-01-25 07:17] MED LIST: BACL10TA PO; CLON0.1T14 PO; DICY20TA28 PO; DIPH50CA37 PO; FLUO-120 PO; GABA-534 PO; HYDR-3895 PO; IBUP-1955 PO; NICO1PAT44 TP; QUET25TA PO; TAMS0.4C34 PO
--- NOTE | 2017-01-25 10:30 | NUR ---
PRE ADMISSION Pt 51 y/o male in intake for assessment. Pt stated [facility] and does not have a stable permanent residence at the moment. Pt admitted for heroin, cocaine, and methamphetamine dependence. Pt alert and oriented to name, place, and time. Perrla. Skin warm and dry to touch. Respirations even and unlabored. No hand tremors noted. Pt appears fidgety , tapping foot and not able to sit still. VS wnl. NKA. Pt denies any SZ history. Pt requested full code status. Pt cooperative with interview. No distress noted at this time. Explained unit rules to pt.
--- NOTE | 2017-01-25 11:00 | NUR ---
ADMISSION Pt 51 y/o male in intake for assessment. Pt stated came from [facility] and does not have a stable permanent residence at the moment. Pt admitted for heroin, cocaine, and methamphetamine dependence. Pt alert and oriented to name, place, and time. Perrla. Skin warm and dry to touch. Respirations even and unlabored. No hand tremors noted. Pt appears fidgety , tapping foot and not able to sit still. VS wnl. NKA. Pt denies any SZ history. Pt requested full code status. Pt cooperative with interview. Pt was seen by MD. Initial cows=3. Oriented pt to unit and room. No distress noted at this time. substance hx: - heroin IV 2gm daily [id number]. Last used 01/25/17 0500 1/2gm. total=30 years - cocaine IV 0.5gm daily x2 weeks. Last used 01/24/17 1.5gm. totals=30 years - methamphetamine IV 0.5gm daily x2 weeks. last used 01/25/17 0.5gm. total=30 years medical hx: BPH, HepC, right rotator cuff surgery, appendectomy treatment hx: Pt states only remembers being admitted for [facility] in October 2016. Addendum: 01/25/17 at 1811 by NATE ALEGRE RN additional info Pt states was on phenobarbital 4 weeks ago in [facility]
[2017-01-25] MEDS ORDERED: ACETAMINOPHEN 325 MG TABLET PO PRN (11:30)
[2017-01-25] MEDS ORDERED: DICYCLOMINE HCL 20 MG TABLET PO PRN (11:30)
[2017-01-25] MEDS ORDERED: IBUPROFEN 600 MG TABLET PO PRN (11:30)
[2017-01-25] MEDS ORDERED: ONDANSETRON 4 MG/2 ML VIAL IM PRN (11:30)
[2017-01-25] MEDS ORDERED: MIRALAX 17 GM POWD.PACK PO PRN (11:30)
[2017-01-25] MEDS ORDERED: ONDANSETRON ODT 4 MG TAB.RAPDIS SL PRN (11:30)
[2017-01-25] MEDS ORDERED: BUPRENORPHINE HCL 2 MG TAB.SUBL SL PRN (11:30)
[2017-01-25] MEDS ORDERED: NICOTINE POLACRILEX 4 MG GUM-PK OF TEN BC PRN (11:30)
[2017-01-25] MEDS ORDERED: diphenhydrAMINE 50 MG CAPSULE PO PRN (11:30)
[2017-01-25] MEDS ORDERED: MAG HYDROX/AL HYDROX/SIMETH 30 ML LIQUID UDC PO PRN (11:30)
[2017-01-25 11:53] LABS: BASOPHILS # (AUTO) 0.1 K/uL (0.0-8.0); BASOPHILS % (AUTO) 1.6 % (0.0-2.0); EOSINOPHILS # (AUTO) 0.4 K/uL (0.0-0.7); EOSINOPHILS % (AUTO) 7.5 % (0.0-7.0); HEMATOCRIT 43.5 % (40-50); LYMPHOCYTES # (AUTO) 1.4 K/UL (0.8-4.8); MEAN CORPUSCULAR HEMOGLOBIN 29.1 UUG (27.0-31.0); MEAN CORPUSCULAR HGB CONC 32 g/dL (32.0-37.0); MEAN CORPUSCULAR VOLUME 90.3 FL (82.0-92.0); MONOCYTES # (AUTO) 0.5 K/UL (0.1-1.30); MONOCYTES % (AUTO) 9.2 % (0.0-11.0); NEUTROPHILS % (AUTO) 55.7 % (38.5-71.5); PLATELET COUNT (AUTO) 274 K/UL (150-450); RED BLOOD CELL COUNT(AUTO) 4.82 MIL/UL (4.7-6.1); WHITE BLOOD COUNT (AUTO) 5.4 K/UL (4.0-11.2)
[2017-01-25 12:00] VITALS: BP 109/75
[2017-01-25] MEDS ORDERED: LORAZEPAM 1 MG TABLET PO ONE (12:00)
[2017-01-25 12:04] LABS: ALANINE AMINOTRANSFERASE 21 U/L (16-63); ALKALINE PHOSPHATASE 59 U/L (50-136); ASPARTATE AMINOTRANSFERASE 18 U/L (15-37); BILIRUBIN,TOTAL 0.3 mg/dL (0.2-1.0); CARBON DIOXIDE 34 mmol/L (21-32); CHLORIDE 100 mmol/L (98-107); GLUCOSE 125 mg/dL (74-106); TOTAL PROTEIN, SERUM 6.9 g/dL (6.4-8.2); UREA NITROGEN, BLOOD 15 mg/dL (7-18)
[2017-01-25 12:12] LABS: *AMPHETAMINE, URINE POSITIVE (NEGATIVE); *BARBITURATE, URINE POSITIVE (NEGATIVE); *CANNABINOID, URINE NEGATIVE (NEGATIVE); *COCCAINE, URINE POSITIVE (NEGATIVE); *OPIATE, URINE POSITIVE (NEGATIVE); *PHENCYCLIDINE SCREEN,URINE NEGATIVE (NEGATIVE)
[2017-01-25 12:13] LABS: ETHANOL < 3 MG/DL (0-0)
[2017-01-25] MEDS ORDERED: QUET100T PO (13:28)
[2017-01-25] MEDS ORDERED: FLUO20CA36 PO (13:28)
[2017-01-25] MEDS: FLUOXETINE HCL 20 MG CAPSULE PO SCH (14:59)
[2017-01-25 16:00] VITALS: BP 109/78
--- NOTE | 2017-01-25 18:09 | NUR ---
END OF SHIFT Pt 51 y/o male admitted for heroin, cocaine, and methamphetamine dependence. Pt alert and oriented to name , place, and time. Perrla. Skin warm and dry to touch. Respirations even and unlabored. No hand tremors noted at this time. Pt observed mostly in room throuhgout the day, mostly on bed with eyes closed resting, but easily arousable to name. Bed on lowest position with side rails x2 up for safety. Call light within reach. No distress noted at this time.
--- NOTE | 2017-01-25 19:00 | NUR ---
Start of Shift Patient Received. Patient is in bed sleeping but easily aroused to verbal stimuli. Breathing even and non labored. Patient is a 51 year old male admitted on 01/25/17 for Opiate Dependence under the care of Dr. Barron. Patient is set to start 01/26/17 0900. No known allergies, wishes to be full code, following a regular diet, placed on fall and seizure precautions, and skin noted intact. Past medical history noted as BPH, Hep C, Right Rotator Cuff injury. Per endorsement, admission COWS noted as 1. All needs attended to promptly. Will continue plan of care as ordered.
[2017-01-25 20:55] VITALS: BP 112/67
[2017-01-25] MEDS: HYDROXYZINE PAMOATE 25 MG CAPSULE PO PRN (21:02)
[2017-01-25] MEDS: TAMSULOSIN HCL 0.4 MG CAP.SR.24H PO SCH (21:02)
[2017-01-25] MEDS: QUETIAPINE FUMARATE 25 MG TABLET PO SCH (21:03)
[2017-01-25] MEDS: GABAPENTIN 300 MG CAPSULE PO SCH (21:03)
[2017-01-25] MEDS: METHOCARBAMOL 750 MG TABLET PO PRN (21:03)
--- NOTE | 2017-01-25 21:03 | NUR ---
PRN Medication Administration Patient verbalizing increased body aches and increased anxiety. PRN Vistaril and Robaxin administered as per orders. Will continue to monitor.
--- NOTE | 2017-01-25 22:00 | NUR ---
PRN Medication Reassessment Patient is able to verbalize PRN Vistaril and Robaxin were effective in minimizing anxiety and body aches. Will continue to monitor.
[2017-01-26] VITALS (7 sets, daily range): BP systolic 109–138; BP diastolic 68–90
[2017-01-26] MEDS: CLONIDINE HCL 0.1 MG TABLET PO PRN ×2 (01:13→09:55)
--- NOTE | 2017-01-26 01:13 | NUR ---
PRN Medication Administration Patient noted awake and verbalizing increased anxiety, agitation, and inability of falling asleep. PRN Clonidine and Benadryl administered as per order. Will continue to monitor.
--- NOTE | 2017-01-26 02:15 | NUR ---
PRN Medication Reassessment Patient noted in bed sleeping. Breathing even and non labored. No signs of pain or discomfort noted. Patient given PRN Clonidine and Benadryl for increased anxiety and inability of falling asleep. Patient noted to sleep with no interruptions noted. PRN medications noted to be effective.
[2017-01-26 06:08] LABS: HEPATITIS B SURFACE AG Negative (Negative)
--- NOTE | 2017-01-26 07:06 | NUR ---
End of Shift Patient is in bed sleeping but easily aroused to verbal stimuli. Breathing even and non labored. No signs of pain or discomfort noted. Patient is a 51 year old male admitted on 01/25/17 for Opiate Dependence under the care of Dr. Barron. Patient is set to start Subutex taper 01/26/17 0900. No known allergies, wishes to be full code, following a regular diet, placed on fall and seizure precautions, and skin noted intact. Past medical history noted as BPH, Hep C, Right Rotator Cuff injury. Patient given PRN Robaxin, Vistaril, Clonidine, Benadryl with all medications noted to be effective. Last CIWA noted to be 9. Patient noted to sleep a total of 5 hours. All needs attended to promptly. Will continue plan of care as ordered.
--- NOTE | 2017-01-26 07:30 | NUR ---
START OF SHIFT Pt 51 y/o male admitted for heroin, cocaine, and methamphetamine dependence. Pt received in room on bed with eyes closed resting, but easily arousable to name. Pt alert and oriented to name , place, and time. Perrla. Skin warm and slighlty moist to touch. Respirations even and unlabored. Bilateral hand tremors noted. It was reported that pt slept for 5 hours last night. Bed on lowest position with side rails x2 up for safety. Call light within reach. No distress noted at this time.
[2017-01-26] MEDS: MULTIVITAMINS,THERAPEUTIC TABLET PO SCH (09:00)
[2017-01-26] MEDS: GABAPENTIN 300 MG CAPSULE PO SCH (09:00)
[2017-01-26] MEDS: NICOTINE 14 MG/24HR PATCH TD SCH (09:00)
[2017-01-26] MEDS: FLUOXETINE HCL 20 MG CAPSULE PO SCH (09:00)
[2017-01-26] MEDS: BUPRENORPHINE HCL 2 MG TAB.SUBL SL SCH ×3 (09:00→20:31)
[2017-01-26] MEDS ORDERED: TUBERCULIN,PURIF.PROT.DERIV. 5 TU/0.1 ML TEST ID ONE (09:00)
[2017-01-26] MEDS: HYDROXYZINE PAMOATE 25 MG CAPSULE PO PRN (09:55)
[2017-01-26] MEDS: METHOCARBAMOL 750 MG TABLET PO PRN (09:55)
--- NOTE | 2017-01-26 09:55 | NUR ---
PRN Pt states has body aches 6/10. Robaxin po prn per MD order given and tolerated well.
--- NOTE | 2017-01-26 09:55 | NUR ---
PRN Pt states feels anxious. Vistaril po prn per MD order given and tolerated well.
--- NOTE | 2017-01-26 09:55 | NUR ---
PRN Pt states feels very anxious. Catapres po prn per MD order given and tolerated well.
--- NOTE | 2017-01-26 10:55 | NUR ---
PRN IESHAAL Pt states pain 2/10 and observed laying on bed watching television.
--- NOTE | 2017-01-26 10:55 | NUR ---
PRN EVAL Pt observed on bed watching television.
[2017-01-26] MEDS ORDERED: LORAZEPAM 1 MG TABLET PO PRN (11:30)
--- NOTE | 2017-01-26 13:40 | NUR ---
PRN Pt stated feels anxious. Pt observed tapping feet and not able to sit still. Ativan po prn per MD order given and tolerated well.
[2017-01-26] MEDS: BACLOFEN 10 MG TABLET PO SCH ×2 (14:33→20:31)
[2017-01-26] MEDS: GABAPENTIN 400 MG CAPSULE PO SCH ×2 (14:33→20:31)
--- NOTE | 2017-01-26 14:40 | NUR ---
PRN FARSHAD Pt observed on bed in room watching television.
--- NOTE | 2017-01-26 18:27 | NUR ---
END OF SHIFT Pt 51 y/o male admitted for heroin, cocaine, and methamphetamine dependence. Pt alert and oriented to name , place, and time. Perrla. Skin warm and dry to touch. Respirations even and unlabored. No hand tremors noted at this time. Pt observed mostly in room throughout the day. Pt was seen by MD today. Pt medication compliant and tolerated well. No ASE noted. Bed on lowest position with side rails x2 up for safety. Call light within reach. No distress noted at this time.
--- NOTE | 2017-01-26 19:00 | NUR ---
Start of Shift Patient Received. Patient is in bed sleeping but easily aroused to verbal stimuli. Breathing even and non labored. Patient is a 51 year old male admitted on 01/25/17 for Opiate Dependence under the care of Dr. Barrno. Patient started on 5 day Subutex taper 01/26/17 0900. No known allergies, wishes to be full code, following a regular diet, placed on fall and seizure precautions, and skin noted intact. Past medical history noted as BPH, Hep C(+), Right Rotator Cuff injury. Per endorsement, Patient was seen and examined by MD with new order for PRN Ativan 2mg Q4H PRN. Patient was given one dose at 1340 with medication noted to be effective. Last COWS noted to be 5. All needs attended to promptly. Will continue plan of care as ordered.
[2017-01-26] MEDS: CLONIDINE HCL 0.1 MG TABLET PO SCH (20:31)
[2017-01-26] MEDS: TAMSULOSIN HCL 0.4 MG CAP.SR.24H PO SCH (20:31)
[2017-01-26] MEDS: QUETIAPINE FUMARATE 25 MG TABLET PO SCH (20:31)
[2017-01-27 00:30] VITALS: BP 117/86
[2017-01-27 04:30] VITALS: BP 107/68
--- NOTE | 2017-01-27 06:59 | NUR ---
End of Shift Patient is in bed sleeping but easily aroused to verbal stimuli. Breathing even and non labored. No signs of pain or discomfort noted. Patient is a 51 year old male admitted on 01/25/17 for Opiate Dependence under the care of Dr. Barron. Patient continues on a 5 day Subutex taper. No known allergies, wishes to be full code, following a regular diet, placed on fall and seizure precautions, and skin noted intact. Past medical history noted as BPH, Hep C, Right Rotator Cuff injury. No PRN Medicaitons administered. Last CIWA noted to be 6. Patient noted to sleep a total of 9 hours. All needs attended to promptly. Will continue plan of care as ordered.
--- NOTE | 2017-01-27 07:45 | NUR ---
Start of Shift Notes: Received patient in his room. Alert and oriented x 4. Verbally responsive. Able to make needs known. Noted with restlessness, shifting body movement but states "I'm alright." Respirations even and unlabored. No SOB noted. Skin warm and dry to touch. Abdomen soft and non-distended with (+) BS in all 4 quadrants. No complains of N/V/D or constipation noted. Voids independently. Denies dysuria. Bladder non-distended. Ambulatory ad mirela with steady gait. Patient is a 51 year old male admitted for opiate/cocaine and methamphetamine dependence who was placed on a 4-daty Subutex taper as ordered. No adverse reactions noted. Prior to admission, patient was using 2 grams of Heroin IV x 2 weeks, 0.5 grams of cocaine IV x 2 weeks and 0.5 grams of methamphetamine IV x 2 weeks. NKA. FULL CODE. Regular diet. On fall and seizure precautions. Educated patient on his current plan of care for the day and his medication regimen. Encouraged oral fluid intake and encouraged group participation to learn new skills to prevent relapse. Will continue to monitor closely.
[2017-01-27 08:00] VITALS: BP 113/66
[2017-01-27] MEDS: GABAPENTIN 400 MG CAPSULE PO SCH ×3 (08:33→21:01)
[2017-01-27] MEDS: FLUOXETINE HCL 20 MG CAPSULE PO SCH (08:34)
[2017-01-27] MEDS: BACLOFEN 10 MG TABLET PO SCH (08:34)
[2017-01-27] MEDS: MULTIVITAMINS,THERAPEUTIC TABLET PO SCH (08:34)
[2017-01-27] MEDS: CLONIDINE HCL 0.1 MG TABLET PO SCH ×3 (08:34→20:59)
[2017-01-27] MEDS: NICOTINE 14 MG/24HR PATCH TD SCH (09:00)
[2017-01-27] MEDS ORDERED: BUPRENORPHINE HCL 2 MG TAB.SUBL SL SCH (09:00)
--- NOTE | 2017-01-27 09:31 | NUR ---
Nicotine patch at 0900 not administered: Patient refused Nicotine patch at this time. Patient states that he will continue to smoke cigarettes today. Educated patient on smoking cessation. Patient verbalized fair understanding. Will continue to discourage smoking and encouraged the patch.
[2017-01-27 12:00] VITALS: BP 122/69
[2017-01-27] MEDS ORDERED: LORAZEPAM 1 MG TABLET PO PRN (12:00)
[2017-01-27] MEDS: BACLOFEN 20 MG TABLET PO SCH ×2 (14:07→21:01)
[2017-01-27] MEDS: BUPRENORPHINE HCL 2 MG TAB.SUBL SL SCH ×2 (14:07→21:00)
[2017-01-27 16:00] VITALS: BP 113/61
--- NOTE | 2017-01-27 17:13 | NUR ---
Therapist prompted client to attend daily group session. Client stated that he would attend.
--- NOTE | 2017-01-27 19:12 | NUR ---
End of Shift Notes: Patient continues to be on 4-day Subutex taper as ordered. No adverse reactions noted. Patient is tolerating taper well. VS monitored closely. No significant abnormalities noted. Patients withdrawal symptoms were closely monitored. Patient presented with restlessness, anxiety, chills, hot flashes and muscle aches and pains. Initial COWS 7, Last COWS 5. Per patient, Subutex has been effective in reducing withdrawal symptoms. Compliant with care and treatment. Refused Nicotine patch in AM. Smoking cessation education provided. On fall and seizure precautions. Will continue to monitor closely.
--- NOTE | 2017-01-27 19:45 | NUR ---
START OF SHIFT Received report from day shift nurse. Pt is lying in bed watching TV. He is a 51 yo male admitted to [facility] on 01/25 for opiate dependence. He is A&O x4 and ambulatory. NKA, full code, regular diet. He has a PMH of Hepatitis C, BPH, right rotator cuff injury, and appendectomy. On admission he reported using heroin IV 2 grams per day for 2 weeks, cocaine IV 0.5 grams per day for 2 weeks, and methamphetamine 0.5 grams per day for two weeks. Pt started a 4 day subutex taper on 01/25. He reports anxiety, body aches, and runny nose. He is observed with facial flushing. Taper due tonight. Fall and seizure precautions in place. Bed is down with call light in reach.
[2017-01-27 20:00] VITALS: BP 108/69
[2017-01-27] MEDS: TAMSULOSIN HCL 0.4 MG CAP.SR.24H PO SCH (21:00)
[2017-01-27] MEDS: QUETIAPINE FUMARATE 25 MG TABLET PO SCH (21:01)
[2017-01-28] VITALS: BP 112/63
--- NOTE | 2017-01-28 | NUR ---
0000 COWS deferred COWS ordered Q4HWA. Pt is lying in bed resting with eyes closed. Respirations even and unlabored. Vital signs obtained. Safety measures in place.
--- NOTE | 2017-01-28 04:00 | NUR ---
0400 Vital refused/COWS deferred Pt refused to be woken for 0400 vitals. He is lying in bed resting with eyes closed. Respirations even and unlabored. COWS ordered Q4HWA. Safety measures in place.
--- NOTE | 2017-01-28 07:05 | NUR ---
Start of Shift Endorsement received from nightshift nurse. Pt is a 51 y/o male admitted for Heroin, Cocaine and meth dependence. Pt has been placed on a 4 day Subutex taper. Pt is moderately withdrawing AEB COWS 7 at midnight. PT did not receive any PRN medications. Pt reports sleeping 8 hours and feeling rested. Pt reports Hx of HepC and BPH. VS WNL, Full Code. . PT is alert and oriented x4. Pt is in STABLE condition at this time. Remains compliant with medication and diet regimen. All needs have been met, All safety measures in place per hospital policy. Bed in lowest position, side rails up x2, call-light within reach. Will continue to monitor
--- NOTE | 2017-01-28 07:15 | NUR ---
END OF SHIFT Report provided to day shift nurse. Pt is lying in bed resting. He is a 51 yo male admitted to [facility] on 01/25 for opiate dependence. He is A&O x4 and ambulatory. NKA, full code, regular diet. He has a PMH of Hepatitis C, BPH, right rotator cuff injury, and appendectomy. On admission he reported using heroin IV 2 grams per day for 2 weeks, cocaine IV 0.5 grams per day for 2 weeks, and methamphetamine 0.5 grams per day for two weeks. Pt started a 4 day subutex taper on 01/25. Pt is cooperative with treatment. No PRN medications administered. Last COWS was 7 before 2100 medications. He drank 1444mL and slept for 8 hours. Fall and seizure precautions in place. Bed is down with call light in reach.
[2017-01-28 08:00] VITALS: BP 114/64
[2017-01-28] MEDS: NICOTINE 14 MG/24HR PATCH TD SCH (09:00)
[2017-01-28] MEDS: GABAPENTIN 400 MG CAPSULE PO SCH ×3 (09:19→20:49)
[2017-01-28] MEDS: BACLOFEN 20 MG TABLET PO SCH ×3 (09:19→20:49)
[2017-01-28] MEDS: MULTIVITAMINS,THERAPEUTIC TABLET PO SCH (09:19)
[2017-01-28] MEDS: CLONIDINE HCL 0.1 MG TABLET PO SCH ×3 (09:19→20:50)
[2017-01-28] MEDS: BUPRENORPHINE HCL 2 MG TAB.SUBL SL SCH ×3 (09:19→20:49)
[2017-01-28] MEDS: FLUOXETINE HCL 20 MG CAPSULE PO SCH (09:19)
[2017-01-28 12:00] VITALS: BP 139/75
[2017-01-28 16:00] VITALS: BP 117/69
--- NOTE | 2017-01-28 19:02 | NUR ---
START OF SHIFT Received report from day shift nurse. Patient is a 51 year old male admitted to [facility] on 01/25/2017 for Opioid dependence continue ordered 4 Day Subutex Taper with tolerated well without ASE. Patient reports NKA. Patient placed on Full Code, Regular Diet, Fall and Seizures Precautions. PMH: Hepatitis C, BPH, right rotator cuff injury, and appendectomy. Patient remains compliant with treatment, medications, and diet regime. PMH: Hepatitis C, BPH, right rotator cuff injury, and appendectomy. Upon endorsement VSWNL. Patient is A&O x4 and ambulatory. COWS 5. Patients c/o anxiety, body aches, and runny nose, and facial flushing. Respirations clear and even. Patient denies SOB, cough, and chest pain. Breathing Sounds are clear throughout. Bowel Sounds are active in all four quadrants. Patient denies SI/HI. Skin is intact, warm, and dry to touch. Encouraged fluids as tolerated. Encourage to attend groups activities. All needs met. Safety measures on place. Call light within reach, bed in lowest position and locked, padded rails up bilaterally. Will continue to monitor closely.
--- NOTE | 2017-01-28 19:02 | NUR ---
End of Shift Endorsement given to nightshift nurse. Pt is a 51 y/o male admitted for Heroin, Cocaine and meth dependence. Pt has been placed on a 4 day Subutex taper. Pt is moderately withdrawing AEB COWS 5 at midnight. PT did not receive any PRN medications. Pt reports eating all his meals. Pt chose to remain in his room all day and refused to participate in groups and activities. Encouraged pt to participate in groups and activities. Intake: 1800ml, Void x3, BM x0. Pt reports Hx of HepC and BPH. VS WNL, Full Code. . PT is alert and oriented x4. Pt is in STABLE condition at this time. Remains compliant with medication and diet regimen. All needs have been met, All safety measures in place per hospital policy. Bed in lowest position, side rails up x2, call-light within reach. Will continue to monitor
[2017-01-28 20:00] VITALS: BP 107/69
[2017-01-28] MEDS: TAMSULOSIN HCL 0.4 MG CAP.SR.24H PO SCH (20:49)
[2017-01-28] MEDS: QUETIAPINE FUMARATE 25 MG TABLET PO SCH (20:49)
[2017-01-29] VITALS: BP 114/59
[2017-01-29 04:00] VITALS: BP 109/65
--- NOTE | 2017-01-29 07:05 | NUR ---
END OF SHIFT NOTE: Patient endorsed to day shift nurse. Report given . Patient is a 51 year old male admitted to [facility] on 01/25/2017 for Opioid dependence continue ordered 4 Day Subutex Taper with tolerated well without ASE. Patient remains compliant with treatment, medications, and diet regime. Patient reports NKA. Patient placed on Full Code, Regular Diet, Fall and Seizures Precautions. Patient denies Seizures History. PMH: Hepatitis C virus infection; Nocturnal hypoxemia; Major depressive disorder; Opiate use disorder; Stimulant use disorder ; Chronic tobacco use. Past Surgical History: Appendectomy ; Rotator cuff surgery, right shoulder; Right wrist surgery. VS at 0400: T: 97.4; BP: 109/65; HR: 74; RR: 18; O2 SAT: 98%. Pain level: "0/10". Respirations unlabored and even. Patient denies SOB, cough and chest pain. Patient denies SI/HI. Skin is intact, warm and dry to touch. COWS 4. Patient denies SI/HI. 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 Patient slept 7 hours, intake 1,000 ml, voided x1, stool x1. Encouraged patient to attend group therapies/sessions to learn new coping skills to prevent relapse. All needs met. Safety measures on place. Call light within reach, bed in lowest position and locked, padded rails up bilaterally rails up bilaterally.
[2017-01-29 08:00] VITALS: BP 110/65
[2017-01-29] MEDS: MULTIVITAMINS,THERAPEUTIC TABLET PO SCH (08:20)
[2017-01-29] MEDS: GABAPENTIN 400 MG CAPSULE PO SCH ×3 (08:20→20:58)
[2017-01-29] MEDS: NICOTINE 14 MG/24HR PATCH TD SCH (08:21)
[2017-01-29] MEDS: FLUOXETINE HCL 20 MG CAPSULE PO SCH (08:21)
[2017-01-29] MEDS: CLONIDINE HCL 0.1 MG TABLET PO SCH ×3 (08:21→20:59)
[2017-01-29] MEDS: BACLOFEN 20 MG TABLET PO SCH ×3 (08:21→21:00)
[2017-01-29] MEDS ORDERED: BUPRENORPHINE HCL 2 MG TAB.SUBL SL SCH (09:00)
[2017-01-29 12:00] VITALS: BP 106/65
[2017-01-29 16:00] VITALS: BP 105/63
--- NOTE | 2017-01-29 18:51 | NUR ---
End of Shift Notes: Patient continues to be on 4-day Subutex taper as ordered. No adverse reactions noted. Patient is tolerating taper well. VS monitored closely. No significant abnormalities noted. Patients withdrawal symptoms were closely monitored. Patient presented with restlessness, anxiety, chills, hot flashes and muscle aches and pains. Initial COWS 5, Last COWS 2. Per patient, Subutex has been effective in reducing withdrawal symptoms. Compliant with care and treatment. Refused Nicotine patch in AM. Smoking cessation education provided. On fall and seizure precautions. Will continue to monitor closely.
--- NOTE | 2017-01-29 19:40 | NUR ---
Start of Shift Note Received report from am nurse. Patient is a 51 year old male admitted for opiate/cocaine and methamphetamine dependence who was placed on a 4-day Subutex taper as ordered. No adverse reactions noted. Dertox completed without complications. Prior to admission, patient was using 2 grams of Heroin IV x 2 weeks, 0.5 grams of cocaine IV x 2 weeks and 0.5 grams of methamphetamine IV x 2 weeks. Patient is alert and oriented x 4. Verbally responsive. Able to make needs known.Ambulatory ad mirela on unit with steady gait. NKA. FULL CODE. Regular diet. On fall and seizure precautions. Educated patient on his current plan of care and his medication regimen. Encouraged group participation and participation in recovery. Will continue to monitor closely.
[2017-01-29] MEDS ORDERED: GABA-536 PO (19:42)
[2017-01-29] MEDS ORDERED: BACL20TA PO (19:42)
[2017-01-29] MEDS ORDERED: CLON0.1T14 PO (19:42)
[2017-01-29] MEDS ORDERED: HYDR-3895 PO (19:42)
[2017-01-29] MEDS ORDERED: DICY20TA28 PO (19:42)
[2017-01-29] MEDS ORDERED: DIPH50CA37 PO (19:42)
[2017-01-29] MEDS ORDERED: IBUP-1955 PO (19:42)
[2017-01-29 20:00] VITALS: BP 111/70
[2017-01-29] MEDS: TAMSULOSIN HCL 0.4 MG CAP.SR.24H PO SCH (20:58)
[2017-01-29] MEDS: QUETIAPINE FUMARATE 25 MG TABLET PO SCH (21:00)
--- NOTE | 2017-01-30 | NUR ---
COWS deferred VS refused Patient refused Vital signs at 0000 PAtient resting comfortably in bed with eyes closed. Respirations 16 Breathing even and unlabored. Will continue to monitor
--- NOTE | 2017-01-30 04:29 | NUR ---
COWS deferred VS refused Patient refused 0400 Vital signs due to wanting to sleep. COWS deferred as patient lying comfortably in bed with eyes closed. Breathing even and unlabored Respirations 16
--- NOTE | 2017-01-30 06:52 | NUR ---
End of shift Report given to am nurse. Patient is a 51 year old male admitted for opiate/cocaine and methamphetamine dependence. He has completed a 4-day Subutex taper. Last CIWA 1 VSS. Detox completed without complications. Patient is alert and oriented x 4. Able to make needs known. Ambulatory ad mirela on unit. He has NKA. He is a full code and on a Regular diet. He is on fall and seizure precautions. Educated patient on his current plan of care. Verbalization of understanding. Input 1400 ml Output 5 voids Slept 7 hours.. Mood remains stable. Affect bright. Will continue to monitor.
[2017-01-30 08:02] VITALS: BP 123/76
[2017-01-30 08:14] VITALS: BP 123/76
[2017-01-30] MEDS: CLONIDINE HCL 0.1 MG TABLET PO SCH (08:14)
[2017-01-30] MEDS: NICOTINE 14 MG/24HR PATCH TD SCH (08:14)
[2017-01-30] MEDS: BACLOFEN 20 MG TABLET PO SCH (08:14)
[2017-01-30] MEDS: FLUOXETINE HCL 20 MG CAPSULE PO SCH (08:14)
[2017-01-30] MEDS: GABAPENTIN 400 MG CAPSULE PO SCH (08:14)
[2017-01-30] MEDS: MULTIVITAMINS,THERAPEUTIC TABLET PO SCH (08:14)
--- NOTE | 2017-01-30 08:24 | NUR ---
START OF SHIFT Received report from night nurse. 51 year old male admitted on 01/25/17 for opiate, cocaine, and methamphetamine dependence. Pt is A/O x4. Pt has completed ordered Subutex taper and is medically cleared for discharge. No acute s/s of withdrawal throughout night. VOWS 1. Pt states he is ready for discharge. No PRN medication needed or administered, pt slept for 7 hours. Ambulates with steady gait, all needs met. Will continue to monitor.
--- NOTE | 2017-01-30 09:15 | NUR ---
D/C NOTE Pt is A/O x4. V/S remain WNL. Pt denies SI/HI or hallucinations. Pt shows no s/s of acute withdrawal at this time, and is stable. has medically cleared pt for d/c . Education on Hepatitis C, smoking cessation and medication side effects provided. Pt verbalizes understanding. All pt belongings are in belonging bag, including prescriptions, and home medications. Refuses PNU vaccination. Pt is being accompanied by AVID EDITOR at this time to be transported to rehab. All needs met
== END 2017-01-30 09:15 | disposition home or self-care (01) | DRG 895 ==
LOC: SRC 10:05
PROVIDERS: ADMIT Internal Medicine; ATTEND Internal Medicine
PROC: HZ2ZZZZ Detoxification Services for Substance Abuse Treatment (ICD-10-PCS; principal; 2017-01-25)
PROC: HZ31ZZZ Individual Counseling for Substance Abuse Treatment, Behavioral (ICD-10-PCS; 2017-01-28)
DX: F11.23 Opioid dependence with withdrawal (principal); E87.3 Alkalosis; F33.2 Major depressive disorder, recurrent severe without psychotic features; F15.23 Other stimulant dependence with withdrawal; Z81.8 Family history of other mental and behavioral disorders; Z81.1 Family history of alcohol abuse and dependence; Z79.899 Other long term (current) drug therapy; Z59.0 Homelessness; E86.0 Dehydration; F14.220 Cocaine dependence with intoxication, uncomplicated; F17.210 Nicotine dependence, cigarettes, uncomplicated; B19.20 Unspecified viral hepatitis C without hepatic coma; N40.0 Benign prostatic hyperplasia without lower urinary tract symptoms; G47.30 Sleep apnea, unspecified; R73.9 Hyperglycemia, unspecified
CPT/HCPCS: 36415; 70030-TC; 80307; 80324; 80345; 80353; 80361; 83735; 85025; 86592; 86705; 86803; 87340; 87806; G0480; Q0163

== ENCOUNTER 2017-05-31 13:54 | Inpatient (IN) | payer BC, OTHER ==
[~2017-05-31] VITALS: Ht 182.9 cm; Wt 61.2 kg
[~2017-05-31 13:54] MED LIST changes: -BACL10TA PO; +BACL20TA PO; -FLUO-120 PO; +FLUO20CA36 PO; -GABA-534 PO; +GABA-536 PO
[2017-05-31] MEDS ORDERED: BUPRENORPHINE HCL 2 MG TAB.SUBL SL PRN (15:00)
[2017-05-31] MEDS ORDERED: LOPERAMIDE HCL 2 MG CAPSULE PO PRN (15:00)
[2017-05-31] MEDS ORDERED: HYDROXYZINE PAMOATE 25 MG CAPSULE PO PRN (15:00)
[2017-05-31] MEDS ORDERED: diphenhydrAMINE 50 MG CAPSULE PO PRN (15:00)
[2017-05-31] MEDS ORDERED: METHOCARBAMOL 750 MG TABLET PO PRN (15:00)
[2017-05-31] MEDS ORDERED: LORAZEPAM 1 MG TABLET PO PRN (15:00)
[2017-05-31] MEDS ORDERED: MAGNESIUM HYDROXIDE 30 ML LIQUID UDC PO PRN (15:00)
[2017-05-31] MEDS ORDERED: ACETAMINOPHEN 325 MG TABLET PO PRN (15:00)
[2017-05-31] MEDS ORDERED: MIRALAX 17 GM POWD.PACK PO PRN (15:00)
[2017-05-31] MEDS ORDERED: CLONIDINE HCL 0.1 MG TABLET PO PRN (15:00)
[2017-05-31] MEDS ORDERED: IBUPROFEN 600 MG TABLET PO PRN (15:00)
[2017-05-31] MEDS ORDERED: ONDANSETRON ODT 4 MG TAB.RAPDIS SL PRN (15:00)
[2017-05-31] MEDS ORDERED: DICYCLOMINE HCL 20 MG TABLET PO PRN (15:00)
[2017-05-31] MEDS: BUPRENORPHINE HCL 2 MG TAB.SUBL SL SCH ×3 (15:35→20:47)
[2017-05-31] MEDS: NEOMY/BACITRAC/POLYMI OINT 28.35 GM TUBE TOP SCH (16:48)
[2017-05-31 16:50] LABS: *AMPHETAMINE, URINE POSITIVE (NEGATIVE); *BARBITURATE, URINE NEGATIVE (NEGATIVE); *CANNABINOID, URINE NEGATIVE (NEGATIVE); *COCCAINE, URINE NEGATIVE (NEGATIVE); *OPIATE, URINE POSITIVE (NEGATIVE); *PHENCYCLIDINE SCREEN,URINE NEGATIVE (NEGATIVE)
[2017-05-31 18:15] LABS: ETHANOL < 3 MG/DL (0-0)
[2017-05-31 18:23] LABS: ALANINE AMINOTRANSFERASE 30 U/L (16-63); ALKALINE PHOSPHATASE 71 U/L (50-136); ASPARTATE AMINOTRANSFERASE 23 U/L (15-37); BILIRUBIN,TOTAL 0.7 mg/dL (0.2-1.0); CARBON DIOXIDE 31 mmol/L (21-32); CHLORIDE 96 mmol/L (98-107); CREATININE 0.9 mg/dL (0.6-1.3); GLUCOSE 85 mg/dL (74-106); MAGNESIUM 1.9 mg/dL (1.8-2.4); TOTAL PROTEIN, SERUM 7.4 g/dL (6.4-8.2); UREA NITROGEN, BLOOD 14 mg/dL (7-18)
[2017-05-31] MEDS ORDERED: LOPE1LIQ97 PO (18:31)
[2017-05-31] MEDS ORDERED: SODI650T PO (18:32)
[2017-05-31] MEDS ORDERED: NAPR220C15 PO (18:33)
[2017-05-31 18:45] LABS: BASOPHILS % (AUTO) 0.1 % (0.0-2.0); EOSINOPHILS # (AUTO) 0.1 K/uL (0.0-0.7); EOSINOPHILS % (AUTO) 2.3 % (0.0-7.0); HEMATOCRIT 47.5 % (36.7-47.1); HEMOGLOBIN 16.4 g/dL (12.5-16.3); LYMPHOCYTES # (AUTO) 1.2 K/uL (20.0-40.0); LYMPHOCYTES % (AUTO) 20.2 % (20.5-51.5); MEAN CORPUSCULAR HEMOGLOBIN 31.8 uug (23.8-33.4); MEAN CORPUSCULAR HGB CONC 35 g/dL (32.5-36.3); MONOCYTES # (AUTO) 0.9 K/uL (2.0-10.0); MONOCYTES % (AUTO) 15.3 % (0.0-11.0); NEUTROPHILS # (AUTO) 3.7 K/uL (1.8-8.9); NEUTROPHILS % (AUTO) 62.1 % (38.5-71.5); PLATELET COUNT (AUTO) 328 K/uL (152-348); RED BLOOD CELL COUNT(AUTO) 5.17 MIL/uL (4.06-5.63)
[2017-05-31 19:24] LABS: NEUTROPHILS % (MANUAL) 0 % (42-75)
[2017-05-31 20:00] VITALS: BP 119/76
[2017-05-31] MEDS: TAMSULOSIN HCL 0.4 MG CAP.SR.24H PO SCH (20:47)
[2017-05-31] MEDS: QUETIAPINE FUMARATE 25 MG TABLET PO SCH (20:47)
[2017-05-31] MEDS: GABAPENTIN 300 MG CAPSULE PO SCH (20:47)
[2017-06-01] VITALS: BP 121/76
[2017-06-01] MEDS: ONDANSETRON 4 MG/2 ML VIAL IM PRN (00:07)
[2017-06-01 08:00] VITALS: BP 116/70
[2017-06-01] MEDS: NEOMY/BACITRAC/POLYMI OINT 28.35 GM TUBE TOP SCH ×2 (08:52→17:12)
[2017-06-01] MEDS: GABAPENTIN 300 MG CAPSULE PO SCH ×2 (08:52→22:01)
[2017-06-01] MEDS: FLUOXETINE HCL 20 MG CAPSULE PO SCH (08:52)
[2017-06-01] MEDS: BUPRENORPHINE HCL 2 MG TAB.SUBL SL SCH ×3 (08:52→22:01)
[2017-06-01] MEDS: LOPERAMIDE HCL 2 MG CAPSULE PO PRN ×2 (08:56→22:12)
[2017-06-01] MEDS ORDERED: TAMSULOSIN HCL 0.4 MG CAP.SR.24H PO SCH (09:00)
[2017-06-01] MEDS ORDERED: TUBERCULIN,PURIF.PROT.DERIV. 5 TU/0.1 ML TEST ID ONE (09:00)
[2017-06-01 12:00] VITALS: BP 108/75
[2017-06-01 16:00] VITALS: BP 124/77
[2017-06-01 20:00] VITALS: BP 116/76
[2017-06-01] MEDS: DICYCLOMINE HCL 20 MG TABLET PO SCH (22:00)
[2017-06-01] MEDS: QUETIAPINE FUMARATE 25 MG TABLET PO SCH (22:01)
[2017-06-01] MEDS: CLONIDINE HCL 0.1 MG TABLET PO SCH (22:01)
[2017-06-01] MEDS: TAMSULOSIN HCL 0.4 MG CAP.SR.24H PO SCH (22:01)
[2017-06-02] VITALS: BP 112/68
[2017-06-02] MEDS ORDERED: BUPRENORPHINE HCL 2 MG TAB.SUBL SL SCH (09:00)
[2017-06-02 09:06] LABS: HEPATITIS B SURFACE AG Negative (Negative)
[2017-06-02] MEDS: FLUOXETINE HCL 20 MG CAPSULE PO SCH (09:20)
[2017-06-02] MEDS: GABAPENTIN 300 MG CAPSULE PO SCH ×2 (09:20→20:19)
[2017-06-02] MEDS: NEOMY/BACITRAC/POLYMI OINT 28.35 GM TUBE TOP SCH ×2 (09:20→16:39)
[2017-06-02] MEDS: CLONIDINE HCL 0.1 MG TABLET PO SCH ×2 (09:20→20:20)
[2017-06-02 11:20] VITALS: BP 104/60
[2017-06-02] MEDS: LOPERAMIDE HCL 2 MG CAPSULE PO PRN (11:56)
[2017-06-02] MEDS: DICYCLOMINE HCL 20 MG TABLET PO SCH ×3 (11:57→20:23)
[2017-06-02] MEDS: MAG HYDROX/AL HYDROX/SIMETH 30 ML LIQUID UDC PO PRN (12:21)
[2017-06-02] MEDS: BUPRENORPHINE HCL 2 MG TAB.SUBL SL SCH ×2 (14:47→20:20)
[2017-06-02 15:40] VITALS: BP 124/74
[2017-06-02 17:39] VITALS: BP 100/64
[2017-06-02 20:00] VITALS: BP 130/70
[2017-06-02] MEDS: QUETIAPINE FUMARATE 25 MG TABLET PO SCH (20:19)
[2017-06-02] MEDS: TAMSULOSIN HCL 0.4 MG CAP.SR.24H PO SCH (20:19)
[2017-06-03] VITALS: BP 110/72
[2017-06-03] MEDS: ONDANSETRON 4 MG/2 ML VIAL IM PRN (02:17)
[2017-06-03] MEDS: MAG HYDROX/AL HYDROX/SIMETH 30 ML LIQUID UDC PO PRN (03:40)
[2017-06-03 04:00] VITALS: BP 95/55
[2017-06-03 08:00] VITALS: BP 120/62
[2017-06-03] MEDS: NEOMY/BACITRAC/POLYMI OINT 28.35 GM TUBE TOP SCH ×2 (09:00→17:00)
[2017-06-03] MEDS: FLUOXETINE HCL 20 MG CAPSULE PO SCH (09:55)
[2017-06-03] MEDS: GABAPENTIN 300 MG CAPSULE PO SCH ×3 (09:55→21:05)
[2017-06-03] MEDS: CLONIDINE HCL 0.1 MG TABLET PO SCH ×3 (09:56→21:03)
[2017-06-03] MEDS: BUPRENORPHINE HCL 2 MG TAB.SUBL SL SCH ×3 (09:56→21:06)
[2017-06-03] MEDS: DICYCLOMINE HCL 20 MG TABLET PO SCH ×3 (09:56→21:04)
[2017-06-03] MEDS ORDERED: DIPHENOXYLATE HCL/ATROP SULF TABLET PO PRN (12:15)
[2017-06-03 12:46] VITALS: BP 109/76
[2017-06-03 16:00] VITALS: BP 115/69
[2017-06-03 20:00] VITALS: BP 117/70
[2017-06-03] MEDS: TAMSULOSIN HCL 0.4 MG CAP.SR.24H PO SCH (21:03)
[2017-06-03] MEDS: QUETIAPINE FUMARATE 25 MG TABLET PO SCH (21:04)
[2017-06-03] MEDS ORDERED: LORAZEPAM 1 MG TABLET PO ONE (23:45)
[2017-06-03] MEDS ORDERED: LORAZEPAM 1 MG TABLET ONE (23:51)
[2017-06-04] VITALS: BP 119/74
[2017-06-04] MEDS ORDERED: OLANZAPINE 10 MG VIAL IM ONE ×2 (01:30→01:39)
[2017-06-04] MEDS ORDERED: HALOPERIDOL LACTATE 5 MG/1 ML VIAL IM ONE (03:15)
[2017-06-04] MEDS ORDERED: diphenhydrAMINE 50 MG/1 ML VIAL IM ONE (03:15)
[2017-06-04] MEDS ORDERED: HALOPERIDOL LACTATE 5 MG/1 ML VIAL ONE (03:24)
[2017-06-04] MEDS ORDERED: diphenhydrAMINE 50 MG/1 ML VIAL ONE (03:27)
[2017-06-04] MEDS ORDERED: LORAZEPAM 2 MG/1 ML VIAL IM ONE (05:00)
[2017-06-04 05:10] VITALS: BP 117/68
[2017-06-04] MEDS ORDERED: LORAZEPAM 2 MG/1 ML VIAL ONE (05:16)
[2017-06-04 08:36] VITALS: BP 124/74
[2017-06-04] MEDS ORDERED: BUPRENORPHINE HCL 2 MG TAB.SUBL SL SCH (09:00)
[2017-06-04] MEDS: NEOMY/BACITRAC/POLYMI OINT 28.35 GM TUBE TOP SCH ×2 (09:59→17:00)
[2017-06-04] MEDS: DICYCLOMINE HCL 20 MG TABLET PO SCH ×3 (09:59→20:45)
[2017-06-04] MEDS: CLONIDINE HCL 0.1 MG TABLET PO SCH ×3 (09:59→20:45)
[2017-06-04] MEDS: GABAPENTIN 300 MG CAPSULE PO SCH ×3 (09:59→20:45)
[2017-06-04] MEDS: FLUOXETINE HCL 20 MG CAPSULE PO SCH (09:59)
[2017-06-04 10:39] LABS: CREATININE 0.9 mg/dL (0.6-1.3); MAGNESIUM 1.7 mg/dL (1.8-2.4); POTASSIUM 3.1 mmol/L (3.5-5.1)
[2017-06-04 10:48] LABS: BASOPHILS % (AUTO) 0.1 % (0.0-2.0); EOSINOPHILS # (AUTO) 0.3 K/uL (0.0-0.7); EOSINOPHILS % (AUTO) 2.7 % (0.0-7.0); HEMATOCRIT 44.6 % (36.7-47.1); HEMOGLOBIN 15.8 g/dL (12.5-16.3); LYMPHOCYTES # (AUTO) 1.9 K/uL (20.0-40.0); LYMPHOCYTES % (AUTO) 18.8 % (20.5-51.5); MEAN CORPUSCULAR HEMOGLOBIN 32.2 uug (23.8-33.4); MEAN CORPUSCULAR HGB CONC 36 g/dL (32.5-36.3); MEAN CORPUSCULAR VOLUME 90.7 fL (73.0-96.2); MONOCYTES # (AUTO) 1.7 K/uL (2.0-10.0); MONOCYTES % (AUTO) 16.6 % (0.0-11.0); NEUTROPHILS # (AUTO) 6.2 K/uL (1.8-8.9); NEUTROPHILS % (AUTO) 61.8 % (38.5-71.5); PLATELET COUNT (AUTO) 321 K/uL (152-348); RED BLOOD CELL COUNT(AUTO) 4.92 MIL/uL (4.06-5.63)
[2017-06-04 11:53] LABS: BAND % (MANUAL) 4 % (0-10); EOSINOPHILS % (MANUAL) 6 % (0-8); LYMPHOCYTES % (MANUAL) 31 % (20-40); MONOCYTES % (MANUAL) 8 % (2-10); NEUTROPHILS % (MANUAL) 51 % (42-75)
[2017-06-04 13:19] VITALS: BP 109/71
[2017-06-04 16:55] VITALS: BP 112/74
[2017-06-04] MEDS ORDERED: POTASSIUM CHLORIDE 20 MEQ TAB.PRT.SR PO ONE (17:00)
[2017-06-04] MEDS ORDERED: MAGNESIUM OXIDE 400 MG TABLET PO ONE (17:00)
[2017-06-04 20:18] VITALS: BP 111/75
[2017-06-04] MEDS: TAMSULOSIN HCL 0.4 MG CAP.SR.24H PO SCH (20:45)
[2017-06-04] MEDS: QUETIAPINE FUMARATE 25 MG TABLET PO SCH (20:45)
[2017-06-05 00:49] VITALS: BP 107/73
[2017-06-05 04:09] VITALS: BP 112/78
[2017-06-05 08:51] VITALS: BP 118/63
[2017-06-05] MEDS: NEOMY/BACITRAC/POLYMI OINT 28.35 GM TUBE TOP SCH ×2 (09:08→17:26)
[2017-06-05] MEDS: CLONIDINE HCL 0.1 MG TABLET PO SCH ×3 (09:08→20:13)
[2017-06-05] MEDS: FLUOXETINE HCL 20 MG CAPSULE PO SCH (09:08)
[2017-06-05] MEDS: GABAPENTIN 300 MG CAPSULE PO SCH ×3 (09:08→20:13)
[2017-06-05] MEDS: DICYCLOMINE HCL 20 MG TABLET PO SCH ×3 (09:08→20:13)
[2017-06-05 12:29] VITALS: BP 113/54
[2017-06-05 16:30] VITALS: BP 104/63
[2017-06-05] MEDS: QUETIAPINE FUMARATE 25 MG TABLET PO SCH (20:12)
[2017-06-05] MEDS: TAMSULOSIN HCL 0.4 MG CAP.SR.24H PO SCH (20:13)
[2017-06-05] MEDS: MAG HYDROX/AL HYDROX/SIMETH 30 ML LIQUID UDC PO PRN (20:18)
[2017-06-05 20:19] VITALS: BP 108/71
[2017-06-05] MEDS ORDERED: CLON0.1T14 PO (21:20)
[2017-06-05] MEDS ORDERED: FLUO-120 PO (21:20)
[2017-06-05] MEDS ORDERED: QUET25TA PO (21:20)
[2017-06-05] MEDS ORDERED: IBUP-1955 PO (21:20)
[2017-06-05] MEDS ORDERED: METH-406 PO (21:20)
[2017-06-05] MEDS ORDERED: TAMS-3 PO (21:20)
[2017-06-05] MEDS ORDERED: LOPE1LIQ97 PO (21:20)
[2017-06-05] MEDS ORDERED: DICY20TA28 PO (21:20)
[2017-06-05] MEDS ORDERED: GABA-534 PO ×2 (21:20)
[2017-06-05] MEDS ORDERED: DIPH50CA37 PO (21:20)
[2017-06-05] MEDS ORDERED: HYDR-3895 PO (21:20)
[2017-06-06 00:52] VITALS: BP 116/64
[2017-06-06 04:41] VITALS: BP 104/68
[2017-06-06 08:45] VITALS: BP 90/61
[2017-06-06] MEDS: GABAPENTIN 300 MG CAPSULE PO SCH (08:46)
[2017-06-06] MEDS: DICYCLOMINE HCL 20 MG TABLET PO SCH (08:46)
[2017-06-06] MEDS: FLUOXETINE HCL 20 MG CAPSULE PO SCH (08:46)
[2017-06-06] MEDS: NEOMY/BACITRAC/POLYMI OINT 28.35 GM TUBE TOP SCH (08:47)
[2017-06-06 08:54] VITALS: BP 90/61
[2017-06-06] MEDS: CLONIDINE HCL 0.1 MG TABLET PO SCH (08:54)
== END 2017-06-06 09:29 | disposition other institution (70) | DRG 895 ==
LOC: SRC 13:54
PROVIDERS: ADMIT Internal Medicine; ATTEND Internal Medicine
PROC: HZ2ZZZZ Detoxification Services for Substance Abuse Treatment (ICD-10-PCS; principal; 2017-05-31)
PROC: HZ31ZZZ Individual Counseling for Substance Abuse Treatment, Behavioral (ICD-10-PCS; 2017-06-03)
DX: F11.23 Opioid dependence with withdrawal (principal); F33.2 Major depressive disorder, recurrent severe without psychotic features; N40.0 Benign prostatic hyperplasia without lower urinary tract symptoms; Z81.1 Family history of alcohol abuse and dependence; Z81.8 Family history of other mental and behavioral disorders; F15.23 Other stimulant dependence with withdrawal; Z79.899 Other long term (current) drug therapy; F17.210 Nicotine dependence, cigarettes, uncomplicated; R41.0 Disorientation, unspecified; G47.00 Insomnia, unspecified; E87.6 Hypokalemia; E83.42 Hypomagnesemia; R09.02 Hypoxemia; G47.30 Sleep apnea, unspecified; B19.20 Unspecified viral hepatitis C without hepatic coma; S40.922A Unspecified superficial injury of left upper arm, initial encounter; Y33.XXXA Other specified events, undetermined intent, initial encounter; Y92.89 Other specified places as the place of occurrence of the external cause
CPT/HCPCS: 36415; 71045; 80307; 80324; 80361; 83735; 85025; 86592; 86625; 86705; 86803; 87046; 87340; 87806; A4663; G0480; J1200; J1630; J2060; J2358; J2405; Q0162